=== PATIENT | female | born 1975 | race Caucasian/White ===

== ENCOUNTER 2018-05-10 01:03 | Outpatient (CLI) | payer BC, SELFPAY ==
--- NOTE | 2018-05-10 08:00 | DI.MAMMO_ITS ---
SYMPTOMS/DIAGNOSIS: BREAST CANCER SCREENING MAMMOGRAM: Mammograms were interpreted according to the usual protocol including computer analysis with CAD system, tomosynthesis and C view imaging. The breasts are of moderate density with fairly symmetrical distribution of fibroglandular tissue. No dominant mass or clumped microcalcification is identified in either breast. Current examination is compared with the previous examination of May 2014 and there has been no gross interval change in appearance in comparison with the previous study. CONCLUSION: No specific evidence of malignancy at this time. Routine screening examinations are suggested at yearly intervals due to the family history of breast carcinoma. Category 1, breast density category B. MQSA ASSESSMENT OF FINDINGS: Negative. Category 1. Patient will receive a letter notifying them of these results. BI-RADS category B. There are scattered areas of fibroglandular density.
[2018-05-10 08:16] LABS: Hemoglobin A1C 9.6 % (4.5-6.2)
[2018-05-10 08:49] LABS: ALT 73 U/L (12-78); AST 45 U/L (15-37); Albumin 3.6 g/dL (3.4-5.0); Alkaline Phosphatase 79 U/L (46-116); BUN 8 mg/dL (7-18); Bilirubin, Total 0.7 mg/dL (0.2-1.0); Calcium 8.7 mg/dL (8.5-10.1); Chloride 100 mmol/L (98-107); Cholesterol 217 mg/dL (50-200); Glucose 223 mg/dL (70-100); HDL Cholesterol 35 mg/dL (40-60); LDL CHOLESTEROL 162 mg/dL (<100); Potassium 4.1 mmol/L (3.5-5.1); Sodium 139 mmol/L (136-145); Total Protein 7.3 g/dL (6.4-8.2); Triglyceride 152 mg/dL (30-150)
== END 2018-05-10 01:23 ==
PROVIDERS: PCP Nurse Practitioner Family; Visit Provider Nurse Practitioner Family
DX: Z12.31 Encounter for screening mammogram for malignant neoplasm of breast (principal); E11.9 Type 2 diabetes mellitus without complications; E78.5 Hyperlipidemia, unspecified; Z79.4 Long term (current) use of insulin
CPT/HCPCS: 36415; 77063; 77067; 80053; 80061; 83721; 83036

== ENCOUNTER 2018-05-16 22:19 | Emergency (ER) | payer BC, SELFPAY ==
[2018-05-16 22:21] VITALS: BP 127/92; PULSE 83; RESP 16; TEMP 36.1; O2SAT 97
--- NOTE | 2018-05-16 22:30 | W.ED.GENAD ---
Discharge Plan Disposition Patient Disposition: HOME Condition: Improving Discharge Details Chief Complaint: Nausea/Vomit/Diar Clinical Impression: Gastroenteritis Primary Care Provider: Aria Wilson ED Provider: Crescencio Segura Home Meds and New Rx's Prescriptions: Continue buspirone 10 mg tablet 10 mg PO HS Qty: 90 RF: 4 blood sugar diagnostic [Blood Glucose Test] strip 1 ea Miscellaneous TID PRNQty: 400 RF: 4 amitriptyline 50 mg tablet 50 mg PO HS Qty: 90 RF: 4 omeprazole 20 mg capsule,delayed release(DR/EC) 20 mg PO DAILY Qty: 90 RF: 4 simvastatin 10 mg tablet 10 mg PO DAILY Qty: 90 RF: 4 trazodone 100 mg tablet 100 mg PO HS Qty: 90 RF: 4 pen needle, diabetic 31 gauge x 1/3 needle 1 ea Miscellaneous QID Qty: 400 RF: 4 metformin 500 mg tablet 500 mg PO BID Qty: 90 RF: 0 inhalational spacing device [Space Chamber Plus] 1 EACH spacer 1 ea Miscellaneous PRN Qty: 1 RF: 0 omega-3 fatty acids-fish oil 1 EACH capsule 1 ea PO DAILY RF: 0 insulin glargine [Lantus Solostar U-100 Insulin] 100 UNIT/1 ML insulin pen 78 units SQ HS Qty: 4 RF: 12 diclofenac sodium 100 GM gel 2 - 4 gm Topical TID PRNQty: 2 RF: 0 Discharge Instructions Instructions: Gastroenteritis (ED) Additional Instructions: Home to rest tonight. Small, frequent sips of fluids to maintain hydration. May use Zofran, as instructed, as needed every 4-6 hours for nausea. Your potassium level was slightly low and while it was supplemented, you would benefit from increased dietary potassium from food such as bananas or tree nuts Return the emergency department for any acute concerns Medical Decision Making 43-year-old female diabetic presents with hours of nausea, vomiting, diarrhea that was watery and without blood. Denies any suspicious food contacts or travel. She does not of chest pain. She states that she has recently been well. She arrives with a temp of 36 pulse 83, blood pressure 127/92. She does not have evidence of peritonitis. Consistent with gastroenteritis. IV access established, labs obtained, patient given fluid bolus and antiemetic. Labs reveal a white blood cell count of 12, chemistries notable for potassium 3.2 which was supplemented in the ED. Following fluids and anti-emetic, patient improved. Stable for outpatient management with as needed use of antiemetic. Discussed with her return precautions to the ER. HPI General Mode of arrival: ambulatory. Date/Time Provider Initiated Documentation: 05/16/18 22:24. Limitations to Documentation: no limitations. Information obtained by: patient. History of Present Illness 43 year old F presents to the emergency department with the chief complaint of Nausea, vomiting, diarrhea over hours time, described as moderate, Quality is described as aching, and is localized to the abdomen. Patient reports no radiation. Patient started experiencing this hour(s) and it has been intermittent. No relieving factors improve symptom(s), No exacerbating factors reported . Patient notes loss of appetite and malaise. Related Data Home Medications Medication Instructions Recorded Confirmed inhalational spacing device [Space #1 01/09/15 05/11/18 Chamber Plus] omega-3 fatty acids-fish oil 1 ea PO DAILY 01/06/16 05/16/18 insulin glargine [Lantus Solostar 78 units SQ HS #4 box 07/28/17 05/16/18 U-100 Insulin] diclofenac sodium 2 - 4 gm TOPICAL TID PRN #2 gm 02/06/18 05/16/18 amitriptyline 50 mg tablet 50 mg PO HS #90 tab-cap 05/01/18 05/16/18 blood sugar diagnostic strips #400 each 05/01/18 05/11/18 buspirone 10 mg tablet 10 mg PO HS #90 tab-cap 05/01/18 05/16/18 omeprazole 20 mg capsule,delayed 20 mg PO DAILY #90 tab-cap 05/01/18 05/16/18 release pen needle, diabetic 31 gauge x #400 ea 05/01/18 05/11/18 1/3 simvastatin 10 mg tablet 10 mg PO DAILY #90 tab-cap 05/01/18 05/16/18 trazodone 100 mg tablet 100 mg PO HS #90 tab 05/01/18 05/16/18 metformin 500 mg tablet 500 mg PO BID #90 tab 05/11/18 05/16/18 Previous Rx's Medication Instructions Recorded insulin glargine [Lantus Solostar 78 units SQ HS #4 box 07/28/17 U-100 Insulin] amitriptyline 50 mg tablet 50 mg PO HS #90 tab-cap 05/01/18 blood sugar diagnostic strips #400 each 05/01/18 buspirone 10 mg tablet 10 mg PO HS #90 tab-cap 05/01/18 omeprazole 20 mg capsule,delayed 20 mg PO DAILY #90 tab-cap 05/01/18 release pen needle, diabetic 31 gauge x #400 ea 05/01/18 1/ simvastatin 10 mg tablet 10 mg PO DAILY #90 tab-cap 05/01/18 trazodone 100 mg tablet 100 mg PO HS #90 tab 05/01/18 metformin 500 mg tablet 500 mg PO BID #90 tab 05/11/18 Allergies Allergy/AdvReac Type Severity Reaction Status Date / Time No Known Allergies Allergy Unverified 05/16/18 22:25 General Stated Complaint: Nausea/Vomit/Diar KAMRON: 3 Review of Systems Review of Systems 6 systems reviewed and otherwise negative PFSH Family History Mother Personal history of malignant neoplasm Hyperlipidemia Father Essential hypertension Hyperlipidemia Brother Asthma Grandfather No problems noted. Grandfather Personal history of malignant neoplasm Grandmother Personal history of malignant neoplasm Grandmother No problems noted. 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 Pleasant, well groomed, interactive. HEAD: Normocephalic, atraumatic ENT: Mucous membranes dry, oropharynx unremarkable, External ear exam unremarkable EYES: PERRL, EOMI NECK: Full ROM, no WILLIS, no menigismus CHEST/RESP: Nontender, clear to auscultation bilateral, no wheeze/rhonchi/rales CARDIOVASCULAR: RRR, no murmur, rub bhavik. 2+ Rad pulse bilateral ABDOMEN: Soft, nontender, no mass. +Bowel sounds EXT: Full ROM, no edema, no rash Neuro: Grossly normal neurologic exam, conversant, interactive. Psych: Speech fluent, thoughts congruent, affect normal Course Vital Signs Temperature 36.1 C L 05/16/18 22:21 Pulse 83 05/16/18 22:21 Respiratory Rate 16 05/16/18 22:21 Blood Pressure 127/92 H 05/16/18 22:21 Pulse Oximetry 97 05/16/18 22:21 Temperature 36.1 C L 05/16/18 22:21 Temperature Source Skin 05/16/18 22:21 Pulse 83 05/16/18 22:21 Respiratory Rate 16 05/16/18 22:21 Respiratory Effort Non-Labored 05/16/18 22:24 Blood Pressure 127/92 H 05/16/18 22:21 Blood Pressure Position Sitting 05/16/18 22:21 Pulse Oximetry 97 05/16/18 22:21 Oxygen Delivery Method Room Air 05/16/18 22:21 Oxygen Flow Rate 0 05/16/18 22:21
[2018-05-16] MEDS: Normal Saline 1,000 ML 2000 ML IV (22:40)
[2018-05-16] MEDS: Ondansetron 4 MG/2 ML VIAL IVP (22:41)
[2018-05-16 22:46] LABS: Basophils % 0.2; Mean Corp. HGB Concentration 36.5 g/dL (32.0-36.0); Neutrophils % 73.3
[2018-05-16 22:55] LABS: Abs Immature Grans 0.04 k/cumm (0.0-0.09); Absolute Basophil Count 0.03 k/cumm (0.0-0.2); Absolute Eosinophil Count 0.13 k/cumm (0.0-0.7); Absolute Lymphocyte Count 2.29 k/cumm (1.2-3.4); Absolute Monocyte Count 0.91 k/cumm (0.11-0.7); Absolute Neutrophil Count 9.31 k/cumm (1.2-6.7); HCT 44.6 % (36.0-46.0); HGB 16.3 g/dL (12.0-15.5); Immature Grans % 0.3; Mean Corpuscular Hemoglobin 29.4 pg (27.0-33.0); Mean Corpuscular Volume 80.5 fL (80-95); Mean Platelet Volume 11.8 fL (8.0-11.0); Monocytes % 7.2; Platelet Count 156 x1000/uL (130-400); RBC 5.54 m/cumm (4.00-5.20); RBC Distribution Width 12.8 % (11.7-14.6)
[2018-05-16 22:58] LABS: ALT 75 U/L (12-78); AST 42 U/L (15-37); Albumin 4.2 g/dL (3.4-5.0); Alkaline Phosphatase 93 U/L (46-116); Anion Gap 13.2 mmol/L (3-11); BUN 10 mg/dL (7-18); Bilirubin, Total 0.7 mg/dL (0.2-1.0); CO2 23.8 mmol/L (21.0-32.0); CREATININE 0.86 mg/dL (0.55-1.02); Calcium 9.5 mg/dL (8.5-10.1); Chloride 100 mmol/L (98-107); Glucose 226 mg/dL (70-100); Lipase 93 U/L (73-393); Potassium 3.2 mmol/L (3.5-5.1); Sodium 137 mmol/L (136-145); Total Protein 8.5 g/dL (6.4-8.2)
[2018-05-16] MEDS: POTASSIUM CHLORIDE 20 MEQ/100 ML BAG 50 MEQ IVPB (23:06)
[2018-05-16] MEDS: Normal Saline 250 ML IV (23:15)
[2018-05-17] MEDS: Ondansetron O.D.T. 4 MG TABEF (01:07)
[2018-05-17 01:13] VITALS: BP 130/84; PULSE 103; RESP 16; TEMP 36.6; O2SAT 96
== END 2018-05-17 01:13 | disposition home or self-care (01) ==
PROVIDERS: Emergency Provider Emergency Medicine; PCP Nurse Practitioner Family
DX: K52.9 Noninfective gastroenteritis and colitis, unspecified (principal); E87.6 Hypokalemia; E11.9 Type 2 diabetes mellitus without complications; Z79.4 Long term (current) use of insulin
CPT/HCPCS: 36415; 80053; 83690; 96361; 96365; 96366; 96375; 99284; 85025; J2405; J3480

== ENCOUNTER 2018-08-14 10:10 | Outpatient (REF) | payer BC, SELFPAY ==
--- NOTE | 2018-08-14 09:45 | PAPFT_PTH ---
PATIENT: Jun Sutton LOC: [facility] U#:[id number] AGE/SX: 43/F ROOM: RE08/14/[address]: SHERIF Brown : 1975 BED: DIS: 08/14/2018 SPEC #: [id number] RECD: 08/14/18 12:51 STATUS: DANYA MONTEJO #: [id number] LANE: 08/14/18 09:[address]: Aria Wilson DEPT: [facility] Cytology RECD BY: No Olivares Tissues: 1 - CX/ENDOCX FOR PAP SMEARS Procedures: PAP THIN PREP/UVM Screening HPV DNA PROBE Comments: [id number]
== END 2018-08-14 10:30 ==
LOC: LBN 10:10
PROVIDERS: PCP Nurse Practitioner Family; Visit Provider Nurse Practitioner Family
DX: Z12.4 Encounter for screening for malignant neoplasm of cervix (principal); Z11.51 Encounter for screening for human papillomavirus (HPV)
CPT/HCPCS: 88142; 87624

== ENCOUNTER 2018-09-28 07:51 | Outpatient (CLI) | payer BC, SELFPAY ==
[2018-09-28 08:36] LABS: Hemoglobin A1C 9.8 % (4.5-6.2)
[2018-09-28 09:43] LABS: ALT 62 U/L (12-78); AST 31 U/L (15-37); Alkaline Phosphatase 76 U/L (46-116); Anion Gap 8.7 mmol/L (3-11); BUN 10 mg/dL (7-18); Bilirubin, Total 0.7 mg/dL (0.2-1.0); CO2 30.3 mmol/L (21.0-32.0); CREATININE 0.81 mg/dL (0.55-1.02); Calcium 9.4 mg/dL (8.5-10.1); Chloride 102 mmol/L (98-107); Cholesterol 142 mg/dL (50-200); Glucose 147 mg/dL (70-100); HDL Cholesterol 31 mg/dL (40-60); LDL CHOLESTEROL 92 mg/dL (<100); Potassium 4.2 mmol/L (3.5-5.1); Sodium 141 mmol/L (136-145); Total Protein 7.4 g/dL (6.4-8.2); Triglyceride 97 mg/dL (30-150)
== END 2018-09-28 08:11 ==
PROVIDERS: PCP Nurse Practitioner Family; Visit Provider Nurse Practitioner Family
DX: E78.5 Hyperlipidemia, unspecified (principal); E11.9 Type 2 diabetes mellitus without complications
CPT/HCPCS: 36415; 80053; 80061; 83721; 83036

== ENCOUNTER 2018-11-19 08:08 | Emergency (ER) | payer BC, SELFPAY ==
--- NOTE | 2018-11-19 08:09 | W.ED.GENAD ---
Discharge Plan Disposition Patient Disposition: HOME Condition: Good Discharge Details Chief Complaint: RespSymp Clinical Impression: Sinusitis, Bronchitis Primary Care Provider: Aria Wilson ED Provider: Thee Funk Home Meds and New Rx's Prescriptions: New loratadine 10 mg capsule 10 mg PO DAILY Qty: 30 RF: 0 fluticasone propionate [Flonase Allergy Relief] 50 mcg/actuation spray,suspension 2 spray CALEB DAILY Qty: 9.9 RF: 0 doxycycline hyclate 100 mg tablet 100 mg PO BID Qty: 20 RF: 0 albuterol sulfate 90 mcg/actuation HFA aerosol inhaler 2 puff IH Q6H PRN (Reason: bronchospasm) Qty: 6.7 RF: 0 No Action Blood Glucose Test strip 1 ea Miscellaneous TID PRNQty: 400 RF: 4 omeprazole 20 mg capsule,delayed release(DR/EC) 20 mg PO DAILY Qty: 90 RF: 4 simvastatin 10 mg tablet 10 mg PO DAILY Qty: 90 RF: 4 trazodone 100 mg tablet 100 mg PO HS Qty: 90 RF: 4 pen needle, diabetic 31 gauge x 1/3 needle 1 ea Miscellaneous QID Qty: 400 RF: 4 buspirone 10 mg tablet 10 mg PO BID Qty: 180 RF: 4 metformin 500 mg tablet 1,000 mg PO BID RF: 0 omega-3 fatty acids-fish oil 1 EACH capsule 1 ea PO DAILY RF: 0 sertraline 50 mg tablet 75 mg PO DAILY Qty: 135 RF: 4 Lantus Solostar U-100 Insulin 100 unit/mL (3 mL) insulin pen 78 unit subcut HS Qty: 60 RF: 4 Discharge Instructions Instructions: Sinusitis (ED), Acute Bronchitis (ED) Additional Instructions: At this time you clinically have sinusitis and bronchitis. Please take the medication as directed. If you notice any worsening of your symptoms, or any new symptoms such as vomiting, diarrhea, fever, chills, shortness of breath, chest pain, numbness, weakness, or fainting , please return immediately to the emergency department for reevaluation. Please follow up with your primary care provider as soon as possible for reassessment and reevaluation. As always, it was a pleasure participating in your medical care today. Referrals: Adjovu,Aria, FILING AND POLISHING SUPERVISOR [Primary Care Provider] - Discharge Data Discharge Date/Time-TO BE ENTERED AT DEPARTURE: 11/19/18 08:53 Medical Decision Making This is a pleasant 43-year-old female who presents today for evaluation of cough, sore throat, productive green sputum. Signs and symptoms are concerning for bronchitis, sinusitis. Patient's vital signs are reassuring, no chest pain or shortness of breath. At this time I do feel that antibiotic treatment is appropriate in the current clinical setting on my evaluation. We will treat with doxycycline, and intranasal steroids to help reduce sinus congestion, and bronchitis. I have extensively reviewed the treatment plan and discharge instructions with the patient and their family. I have addressed all patient concerns at this time. The patient and family was made aware of what symptoms to monitor for that would warrant a return to the emergency department. Discussed the plan with the patient and family, they demonstrate verbal understanding and agreement with our assessment and plan at this time. HPI General Date/Time Provider Initiated Documentation: 11/19/18 08:08. HPI Narrative: This is a 43-year-old female who presents today for evaluation of sore throat last night as well as mild cough with productive green sputum. She denies any fever or chills. She denies any headache, chest pain, shortness of breath, numbness, tingling or weakness. She does admit to other similar symptoms and sick contacts. She has no other complaints at this time. No other modifying factors. Related Data Home Medications Medication Instructions Recorded Confirmed omega-3 fatty acids-fish oil 1 ea PO DAILY 01/06/16 11/19/18 blood sugar diagnostic strips #400 each 05/01/18 11/19/18 omeprazole 20 mg capsule,delayed 20 mg PO DAILY #90 tab-cap 05/01/18 11/19/18 release pen needle, diabetic 31 gauge x #400 ea 05/01/18 11/19/18/ simvastatin 10 mg tablet 10 mg PO DAILY #90 tab-cap 05/01/18 11/19/18 trazodone 100 mg tablet 100 mg PO HS #90 tab 05/01/18 11/19/18 buspirone 10 mg tablet 10 mg PO BID #180 tab 08/14/18 11/19/18 sertraline 50 mg tablet 75 mg PO DAILY #135 tab 09/27/18 11/19/18 metformin 500 mg tablet 1,000 mg PO BID tab 09/29/18 11/19/18 insulin glargine (U-100) 100 78 unit SUBCUT HS #60 ml 10/03/18 11/19/18 unit/mL (3 mL) subcutaneous pen albuterol sulfate 2 puff IH Q6H PRN #6.7 gm 11/19/18 doxycycline hyclate 100 mg PO BID #20 tab 11/19/18 fluticasone propionate [Flonase 2 spray CALEB DAILY #9.9 gm 11/19/18 Allergy Relief] loratadine 10 mg PO DAILY #30 cap 11/19/18 Previous Rx's Medication Instructions Recorded blood sugar diagnostic strips #400 each 05/01/18 omeprazole 20 mg capsule,delayed 20 mg PO DAILY #90 tab-cap 05/01/18 release pen needle, diabetic 31 gauge x #400 ea 05/01/1806/29 simvastatin 10 mg tablet 10 mg PO DAILY #90 tab-cap 05/01/18 trazodone 100 mg tablet 100 mg PO HS #90 tab 05/01/18 buspirone 10 mg tablet 10 mg PO BID #180 tab 08/14/18 sertraline 50 mg tablet 75 mg PO DAILY #135 tab 09/27/18 insulin glargine (U-100) 100 78 unit SUBCUT HS #60 ml 10/03/18 unit/mL (3 mL) subcutaneous pen albuterol sulfate 2 puff IH Q6H PRN #6.7 gm 11/19/18 doxycycline hyclate 100 mg PO BID #20 tab 11/19/18 fluticasone propionate [Flonase 2 spray CALEB DAILY #9.9 gm 11/19/18 Allergy Relief] loratadine 10 mg PO DAILY #30 cap 11/19/18 Allergies Allergy/AdvReac Type Severity Reaction Status Date / Time No Known Allergies Allergy Unverified 11/19/18 08:18 General KAMRON: 3 Review of Systems Review of Systems All systems reviewed & are unremarkable except as noted in HPI and below PFSH Social History Smoking/Tobacco Use Status: Never Alcohol Intake: current Alcohol Intake frequency: holidays/special occasions only Drug use: Never Substance use type: does not use Caregiver/Support person: No Household members: spouse, children and other Details: 3 Housing: house 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 Pets and animals: Yes Pets and animals: cat(s) and dog(s) Sexually active: Yes Do you think of yourself as: straight/heterosexual Current gender identity: female What is your relationship status?: How often do you talk on the phone with friends or family?: twice per week How often do you get together with friends or relatives?: once per week How often do you attend anabaptism or pentecostalism services?: decline to answer Do you belong to any clubs or organized social groups?: no Panel score (0-1 are the most socially isolated patients): 2 What type of physical activity do you participate in: none Shae/Caodaism: None Special shae needs: No Do you feel safe at home: Yes Do you feel safe in your relationship?: Yes History History 3 Para Hx # Term Pregnancies Multiple births Hx # Pregnancies Ectopic pregnancies AB induced Hx Number of Living Children 1 AB spontaneous 2 Exam Narrative Exam Narrative: 1.Const: Well-nourished, Well-developed, appearing stated age 2.Eyes: PERRL, no conjunctival injection, and symmetrical lids. 3.ENT: Atraumatic external nose and ears. Moist MM. Neck: Symmetric, trachea midline, No thyromegaly. Tenderness to percussion of the frontal sinuses. 4.CVS: +S1/S2, No murmurs or gallops. Peripheral pulses 2+ and equal in all extremities. Brisk capillary refill in all extremities. 5.RESP: Unlabored respiratory effort. Minimal upper respiratory rhonchi. 6.GI: Soft, Nontender/Nondistended, No hepatosplenomegaly. No guarding or rebound. 7.MSK: Normocephalic/Atraumatic, Extremities w/o deformity or ttp No cyanosis or clubbing, Normal movement of all extremities 8.Skin: Warm, Dry. No rashes or lesions. 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 Sensation grossly intact, no focal neurologic deficits. 10.Psych: (AAO) x3. Appropriate mood and affect
--- NOTE | 2018-11-19 08:14 | NUR.NOTE ---
pt states that she has had cold like symptoms and predictive cough for the past month on and off
[2018-11-19 08:15] VITALS: BP 143/90; PULSE 90; RESP 18; TEMP 36.6; O2SAT 95
--- NOTE | 2018-11-19 08:20 | ED.GENADUL_ITS ---
Discharge Plan Disposition Patient Disposition: HOME Condition: Good Discharge Details Chief Complaint: RespSymp Clinical Impression: Sinusitis, Bronchitis Primary Care Provider: Aria Wilson ED Provider: Thee Funk Home Meds and New Rx's Prescriptions: New loratadine 10 mg capsule 10 mg PO DAILY Qty: 30 RF: 0 fluticasone propionate [Flonase Allergy Relief] 50 mcg/actuation spray,suspension 2 spray CALEB DAILY Qty: 9.9 RF: 0 doxycycline hyclate 100 mg tablet 100 mg PO BID Qty: 20 RF: 0 albuterol sulfate 90 mcg/actuation HFA aerosol inhaler 2 puff IH Q6H PRN (Reason: bronchospasm) Qty: 6.7 RF: 0 No Action Blood Glucose Test strip 1 ea Miscellaneous TID PRNQty: 400 RF: 4 omeprazole 20 mg capsule,delayed release(DR/EC) 20 mg PO DAILY Qty: 90 RF: 4 simvastatin 10 mg tablet 10 mg PO DAILY Qty: 90 RF: 4 trazodone 100 mg tablet 100 mg PO HS Qty: 90 RF: 4 pen needle, diabetic 31 gauge x 1/3 needle 1 ea Miscellaneous QID Qty: 400 RF: 4 buspirone 10 mg tablet 10 mg PO BID Qty: 180 RF: 4 metformin 500 mg tablet 1,000 mg PO BID RF: 0 omega-3 fatty acids-fish oil 1 EACH capsule 1 ea PO DAILY RF: 0 sertraline 50 mg tablet 75 mg PO DAILY Qty: 135 RF: 4 Lantus Solostar U-100 Insulin 100 unit/mL (3 mL) insulin pen 78 unit subcut HS Qty: 60 RF: 4 Discharge Instructions Instructions: Sinusitis (ED), Acute Bronchitis (ED) Additional Instructions: At this time you clinically have sinusitis and bronchitis. Please take the medication as directed. If you notice any worsening of your symptoms, or any new symptoms such as vomiting, diarrhea, fever, chills, shortness of breath, chest pain, numbness, weakness, or fainting , please return immediately to the emergency department for reevaluation. Please follow up with your primary care provider as soon as possible for reassessment and reevaluation. As always, it was a pleasure participating in your medical care today. Referrals: Adjovu,Aria, QUANTITATIVE ANALYST DEVELOPER [Primary Care Provider] - Discharge Data Discharge Date/Time-TO BE ENTERED AT DEPARTURE: 11/19/18 08:53 Medical Decision Making This is a pleasant 43-year-old female who presents today for evaluation of cough, sore throat, productive green sputum. Signs and symptoms are concerning for bronchitis, sinusitis. Patient's vital signs are reassuring, no chest pain or shortness of breath. At this time I do feel that antibiotic treatment is appropriate in the current clinical setting on my evaluation. We will treat with doxycycline, and intranasal steroids to help reduce sinus congestion, and bronchitis. I have extensively reviewed the treatment plan and discharge instructions with the patient and their family. I have addressed all patient concerns at this time. The patient and family was made aware of what symptoms to monitor for that would warrant a return to the emergency department. Discussed the plan with the patient and family, they demonstrate verbal understanding and agreement with our assessment and plan at this time. HPI General Date/Time Provider Initiated Documentation: 11/19/18 08:08 . HPI Narrative: This is a 43-year-old female who presents today for evaluation of sore throat last night as well as mild cough with productive green sputum. She denies any fever or chills. She denies any headache, chest pain, shortness of breath, numbness, tingling or weakness. She does admit to other similar symptoms and sick contacts. She has no other complaints at this time. No other modifying factors. Related Data Home Medications Medication Instructions Recorded Confirmed omega-3 fatty acids-fish oil 1 ea PO DAILY 01/06/16 11/19/18 blood sugar diagnostic strips #400 each 05/01/18 11/19/18 omeprazole 20 mg capsule,delayed 20 mg PO DAILY #90 tab-cap 05/01/18 11/19/18 release pen needle, diabetic 31 gauge x #400 ea 05/01/18 11/19/18/ simvastatin 10 mg tablet 10 mg PO DAILY #90 tab-cap 05/01/18 11/19/18 trazodone 100 mg tablet 100 mg PO HS #90 tab 05/01/18 11/19/18 buspirone 10 mg tablet 10 mg PO BID #180 tab 08/14/18 11/19/18 sertraline 50 mg tablet 75 mg PO DAILY #135 tab 09/27/18 11/19/18 metformin 500 mg tablet 1,000 mg PO BID tab 09/29/18 11/19/18 insulin glargine (U-100) 100 78 unit SUBCUT HS #60 ml 10/03/18 11/19/18 unit/mL (3 mL) subcutaneous pen albuterol sulfate 2 puff IH Q6H PRN #6.7 gm 11/19/18 doxycycline hyclate 100 mg PO BID #20 tab 11/19/18 fluticasone propionate [Flonase 2 spray CALEB DAILY #9.9 gm 11/19/18 Allergy Relief] loratadine 10 mg PO DAILY #30 cap 11/19/18 Previous Rx's Medication Instructions Recorded blood sugar diagnostic strips #400 each 05/01/18 omeprazole 20 mg capsule,delayed 20 mg PO DAILY #90 tab-cap 05/01/18 release pen needle, diabetic 31 gauge x #400 ea 05/01/1806/29 simvastatin 10 mg tablet 10 mg PO DAILY #90 tab-cap 05/01/18 trazodone 100 mg tablet 100 mg PO HS #90 tab 05/01/18 buspirone 10 mg tablet 10 mg PO BID #180 tab 08/14/18 sertraline 50 mg tablet 75 mg PO DAILY #135 tab 09/27/18 insulin glargine (U-100) 100 78 unit SUBCUT HS #60 ml 10/03/18 unit/mL (3 mL) subcutaneous pen albuterol sulfate 2 puff IH Q6H PRN #6.7 gm 11/19/18 doxycycline hyclate 100 mg PO BID #20 tab 11/19/18 fluticasone propionate [Flonase 2 spray CALEB DAILY #9.9 gm 11/19/18 Allergy Relief] loratadine 10 mg PO DAILY #30 cap 11/19/18 Allergies Allergy/AdvReac Type Severity Reaction Status Date / Time No Known Allergies Allergy Unverified 11/19/18 08:18 General KAMRON: 3 Review of Systems Review of Systems All systems reviewed & are unremarkable except as noted in HPI and below PFSH Social History Smoking/Tobacco Use Status: Never Alcohol Intake: current Alcohol Intake frequency: holidays/special occasions only Drug use: Never Substance use type: does not use Caregiver/Support person: No Household members: spouse, children and other Details: 3 Housing: house 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 Pets and animals: Yes Pets and animals: cat(s) and dog(s) Sexually active: Yes Do you think of yourself as: straight/heterosexual Current gender identity: female What is your relationship status?: How often do you talk on the phone with friends or family?: twice per week How often do you get together with friends or relatives?: once per week How often do you attend restorationist or adventism services?: decline to answer Do you belong to any clubs or organized social groups?: no Panel score (0-1 are the most socially isolated patients): 2 What type of physical activity do you participate in: none Shae/Worship: None Special shae needs: No Do you feel safe at home: Yes Do you feel safe in your relationship?: Yes History History 3 Para Hx # Term Pregnancies Multiple births Hx # Pregnancies Ectopic pregnancies AB induced Hx Number of Living Children 1 AB spontaneous 2 Exam Narrative Exam Narrative: 1.Const: Well-nourished, Well-developed, appearing stated age 2.Eyes: PERRL, no conjunctival injection, and symmetrical lids. 3.ENT: Atraumatic external nose and ears. Moist MM. Neck: Symmetric, trachea midline, No thyromegaly. Tenderness to percussion of the frontal sinuses. 4.CVS: +S1/S2, No murmurs or gallops. Peripheral pulses 2+ and equal in all extremities. Brisk capillary refill in all extremities. 5.RESP: Unlabored respiratory effort. Minimal upper respiratory rhonchi. 6.GI: Soft, Nontender/Nondistended, No hepatosplenomegaly. No guarding or rebound. 7.MSK: Normocephalic/Atraumatic, Extremities w/o deformity or ttp No cyanosis or clubbing, Normal movement of all extremities 8.Skin: Warm, Dry. No rashes or lesions. 9.Neuro: division traffic superintendent II-XII grossly intact. Sensation grossly intact, no focal neurologic deficits. 10.Psych: (AAO) x3. Appropriate mood and affect
[2018-11-19 08:52] VITALS: BP 143/90; PULSE 90; RESP 18; TEMP 36.6; O2SAT 95
== END 2018-11-19 08:53 | disposition home or self-care (01) ==
PROVIDERS: Emergency Provider Student in an Organized Health Care Education/Training Program; PCP Nurse Practitioner Family
DX: J20.9 Acute bronchitis, unspecified (principal); J01.90 Acute sinusitis, unspecified; J02.9 Acute pharyngitis, unspecified
CPT/HCPCS: 99283

== ENCOUNTER 2019-01-14 18:30 | Emergency (ER) | payer BC, SELFPAY ==
[2019-01-14 18:33] VITALS: BP 110/69; PULSE 70; RESP 16; TEMP 36.2; O2SAT 95
--- NOTE | 2019-01-14 19:27 | ED.GENADUL_ITS ---
Discharge Plan Disposition Patient Disposition: HOME Condition: Good Discharge Details Chief Complaint: Laceration Clinical Impression: Laceration of lower extremity Primary Care Provider: Aria Wilson ED Provider: Shadia Mascorro Home Meds and New Rx's Prescriptions: New cephalexin [Keflex] 500 mg capsule 500 mg PO QID Qty: 20 RF: 0 Continued (DME) Blood Glucose Test strip 1 ea Miscellaneous TID Qty: 400 RF: 4 omeprazole 20 mg capsule,delayed release(DR/EC) 20 mg PO DAILY Qty: 90 RF: 4 simvastatin 10 mg tablet 10 mg PO DAILY Qty: 90 RF: 4 trazodone 100 mg tablet 100 mg PO HS Qty: 90 RF: 4 (DME) pen needle, diabetic 31 gauge x 1/3 needle 1 ea Miscellaneous QID Qty: 400 RF: 4 buspirone 10 mg tablet 10 mg PO BID Qty: 180 RF: 4 metformin 500 mg tablet 1,000 mg PO BID RF: 0 omega-3 fatty acids-fish oil 1 EACH capsule 1 ea PO DAILY RF: 0 sertraline 50 mg tablet 75 mg PO DAILY Qty: 135 RF: 4 Lantus Solostar U-100 Insulin 100 unit/mL (3 mL) insulin pen 78 unit subcut HS Qty: 60 RF: 4 loratadine 10 mg capsule 10 mg PO DAILY Qty: 30 RF: 0 fluticasone propionate [Flonase Allergy Relief] 50 mcg/actuation spray,suspen melissa 2 spray CALEB DAILY Qty: 9.9 RF: 0 albuterol sulfate 90 mcg/actuation HFA aerosol inhaler 2 puff IH Q6H PRN (Reason: bronchospasm) Qty: 6.7 RF: 0 Discharge Instructions Instructions: Cephalexin (By mouth), Laceration (ED) Additional Instructions: Encourage hydration. Please keep wound clean, dry, covered. Tylenol and/or ibuprofen as needed for discomfort. Please monitor wound for signs of infection including redness, warmth, drainage, increased pain, fever/chills. If these or other new/worsening symptoms arise please seek care urgently once again. Otherwise complete return in 2 weeks for suture removal. Please take Keflex as prescribed to help prevent infection. May wash with running water and soap but please do not soak or submerge as this will increase risk of infection. Referrals: Aria Wilson NP [Primary Care Provider] - Discharge Data Discharge Date/Time-TO BE ENTERED AT DEPARTURE: 01/14/19 20:36 Medical Decision Making Patient is a pleasant 23-year-old female presenting today with chief complaint of left posterior ankle laceration. She reports a prior to arrival she was w alking out of her house when she got caught by the edge of the screen door in the back of the ankle suffered a laceration into the subcutaneous tissue approximately 4 cm in length. Wound is curvilinear. Leading is controlled. Patient is a type II diabetic. Last tetanus was in 2011. Will update this today. Wound is just medial to the Achilles tendon, Achilles tendon is intact but visible on exam. Plan to anesthetize the wound and closed with sutures. Patient I discussed risk/benefits as well as expected procedural course. She voiced understanding and wished to proceed Please see procedure note. Patient tolerated this well. No foreign body or debris was noted. Wound was explored to depth in a bloodless field. Copious irrigation was used. Patient tolerated procedure well. We discussed wound care in depth. Wound was dressed. The patient is diabetic, this was an old dirty do or, and the location is at high risk for infection, feel prudent to place patient prophylactically on Keflex. Advised that she return in 2 weeks for suture removal. She is given strict return precautions, in particular signs of infection. All of her questions and concerns were addressed and she is in agreement this plan peer HPI General Mode of arrival: ambulatory . Date/Time Provider Initiated Documentation: 01/14/19 19:27 . Limitations to Documentation: no limitations . Information obtained by: patient and RN notes reviewed . History of Present Illness 43 year old F presents to the emergency department with the chief complaint of laceration left ankle, described as mild, with intensity rated at 3. Quality is described as aching, and is localized to the left and lower extremity. Patient reports no radiation. Patient started experiencing this minute(s) and it has been constant. No relieving factors improve symptom(s), No exacerbating factors reported . Patient notes no other symptoms.. Patient did receive the following treatments prior to arrival, none Related Data Home Medications Medication Instructions Recorded Confirmed omega-3 fatty acids-fish oil 1 ea PO DAILY 01/06/16 01/14/19 blood sugar diagnostic #400 each 05/01/18 11/19/18 omeprazole 20 mg capsule,delayed 20 mg PO DAILY #90 tab-cap 05/01/18 01/14/19 release pen needle, diabetic 31 gauge x #400 ea 05/01/18 11/19/1806/29 simvastatin 10 mg tablet 10 mg PO DAILY #90 tab-cap 05/01/18 01/14/19 trazodone 100 mg tablet 100 mg PO HS #90 tab 05/01/18 01/14/19 buspirone 10 mg tablet 10 mg PO BID #180 tab 08/14/18 01/14/19 sertraline 50 mg tablet 75 mg PO DAILY #135 tab 09/27/18 01/14/19 metformin 500 mg tablet 1,000 mg PO BID tab 09/29/18 01/14/19 insulin glargine 100 unit/mL (3 78 unit SUBCUT HS #60 ml 10/03/18 01/14/19 mL) subcutaneous pen albuterol sulfate 2 puff IH Q6H PRN #6.7 gm 11/19/18 01/14/19 fluticasone propionate [Flonase 2 spray CALEB DAILY #9.9 gm 11/19/18 01/14/19 Allergy Relief] loratadine 10 mg PO DAILY #30 cap 11/19/18 01/14/19 cephalexin [Keflex] 500 mg PO QID #20 cap 01/14/19 Previous Rx's Medication Instructions Recorded blood sugar diagnostic #400 each 05/01/18 omeprazole 20 mg capsule,delayed 20 mg PO DAILY #90 tab-cap 05/01/18 release pen needle, diabetic 31 gauge x #400 ea 05/01/1806/29 simvastatin 10 mg tablet 10 mg PO DAILY #90 tab-cap 05/01/18 trazodone 100 mg tablet 100 mg PO HS #90 tab 05/01/18 buspirone 10 mg tablet 10 mg PO BID #180 tab 08/14/18 sertraline 50 mg tablet 75 mg PO DAILY #135 tab 09/27/18 insulin glargine 100 unit/mL (3 78 unit SUBCUT HS #60 ml 10/03/18 mL) subcutaneous pen albuterol sulfate 2 puff IH Q6H PRN #6.7 gm 11/19/18 fluticasone propionate [Flonase 2 spray CALEB DAILY #9.9 gm 11/19/18 Allergy Relief] loratadine 10 mg PO DAILY #30 cap 11/19/18 cephalexin [Keflex] 500 mg PO QID #20 cap 01/14/19 Allergies Allergy/AdvReac Type Severity Reaction Status Date / Time No Known Allergies Allergy Unverified 01/14/19 18:37 General Stated Complaint: Laceration KAMRON: 4 Review of Systems Constitutional Reports as per HPI, Denies chills and Denies fever(s) Musculoskeletal Reports as per HPI Integumentary/Breasts Reports as per HPI Neurologic Reports as per HPI, Denies sensory deficit and Denies paresthesias [facility] Medical History Allergic rhinitis (Chronic) Depressive disorder (Chronic) Diabetes (Chronic) Gastroesophageal reflux disease (Chronic) Generalized anxiety disorder (Chronic) Hyperlipidemia (Chronic) Nonalcoholic steatohepatitis (MARQUEZ) (Chronic 06/10/14) PCOS (polycystic ovarian syndrome) (Chronic) Type 2 diabetes mellitus (Chronic) Surgical History Colonoscopy - MAC (Inactive 03/09/07) History of ankle surgery (Inactive 04/18/09) History of bilateral carpal tunnel release (Inactive 11/01/06) History of repair of anterior cruciate ligament of right knee (Inactive) S/P arthroscopic knee surgery (Inactive) Status post incision and drainage (Inactive 01/16/14) Social History Smoking/Tobacco Use Status: Never Alcohol Intake: current Alcohol Intake frequency: holidays/special occasions only Drug use: Never Substance use type: does not use Caregiver/Support person: No Household members: spouse, children and other Details: 3 Housing: house 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 Pets and animals: Yes Pets and animals: cat(s) and dog(s) Sexually active: Yes Do you think of yourself as: straight/heterosexual Current gender identity: female What is your relationship status?: How often do you talk on the phone with friends or family?: twice per week How often do you get together with friends or relatives?: once per week How often do you attend methodist or lutheran services?: decline to answer Do you belong to any clubs or organized social groups?: no Panel score (0-1 are the most socially isolated patients): 2 What type of physical activity do you participate in: none Shae/Pentecostal: None Special shae needs: No Do you feel safe at home: Yes Do you feel safe in your relationship?: Yes History History 3 Para Hx # Term Pregnancies Multiple births Hx # Pregnancies Ectopic pregnancies AB induced Hx Number of Living Children 1 AB spontaneous 2 Exam Const General: cooperative, healthy appearing, comfortable, no acute distress and well developed Nutritional Appearance: average body habitus and well nourished Orientation: alert and awake Resp Effort & Inspection: normal respiratory effort, able to speak in complete sentences and no respiratory distress Cardio Rate: regular rate Rhythm: regular rhythm Skin Trauma: laceration (3.5cm curvilinear laceration to left medial ankle just off of achilles) Neuro General: alert and awake Cognition: normal cognition Speech: speech normal Gait: normal gait Sensory Exam: no sensory deficits noted Extrem Left lower extremity: full ROM, normal capillary refill, no joint enlargement, lower leg Details: normal to inspection and no edema; no erythema, no tenderness and no localized swelling, ankle Details: tenderness (over laceration), no edema and normal ROM; no swelling and achilles tendon exam normal (visible through wound but intact) and foot Details: normal capillary refill and vascular exam Details: dorsalis pedis pulse present, posterior tibial pulse present and normal capillary refill; abnormal to inspection (laceration as above) and no edema Ankle/foot/toe images: 1. laceration Psych Appearance: grossly normal and well kempt Mental Status: mental status grossly normal Speech and Movement: speech and movement normal Course Vital Signs Temperature 36.2 C L 01/14/19 18:33 Pulse 70 01/14/19 18:33 Respiratory Rate 16 01/14/19 18:33 Blood Pressure 110/69 01/14/19 18:33 Pulse Oximetry 95 01/14/19 18:33 Temperature 36.2 C L 01/14/19 18:33 Temperature Source Skin 01/14/19 18:33 Pulse 70 01/14/19 18:33 Respiratory Rate 16 01/14/19 18:33 Respiratory Effort Non-Labored 01/14/19 18:36 Blood Pressure 110/69 01/14/19 18:33 Pulse Oximetry 95 01/14/19 18:33 Pain Level 3 01/14/19 18:33 Procedures Laceration Laceration 1: Site: lower extremity Side (If applicable): left Size (cm): 3.5 Description: irregular Depth: simple, single layer Local Anesthetic: Lidocaine 1% Amount of anesthesia used (mL): 10 Pre-repair: wound explored, irrigated extensively, deep structures intact and extensive debridement Skin layer closed with: nylon Size (cm): 5-0 Number of sutures: 5 Technique: simple, interrupted and horizontal mattress
[2019-01-14] MEDS: Lidocaine 1% Multi-Dose 50 ML VIAL (20:21)
[2019-01-14] MEDS: Cephalexin 500 MG CAP PO ×2 (20:37)
== END 2019-01-14 20:36 | disposition home or self-care (01) ==
PROVIDERS: Emergency Provider Physician Assistant; PCP Nurse Practitioner Family
DX: S91.012A Laceration without foreign body, left ankle, initial encounter (principal); W45.8XXA Other foreign body or object entering through skin, initial encounter; E11.9 Type 2 diabetes mellitus without complications; Z79.4 Long term (current) use of insulin
CPT/HCPCS: 12002; 90471; 99283

== ENCOUNTER 2019-01-25 08:12 | Outpatient (CLI) | payer BC, SELFPAY ==
[2019-01-25 09:40] LABS: Hemoglobin A1C 7.6 % (4.5-6.2)
== END 2019-01-25 08:32 ==
PROVIDERS: PCP Nurse Practitioner Family; Visit Provider Nurse Practitioner Family
DX: E11.9 Type 2 diabetes mellitus without complications (principal)
CPT/HCPCS: 83036

== ENCOUNTER 2019-04-25 07:16 | Outpatient (CLI) | payer BC, SELFPAY ==
[2019-04-25 09:12] LABS: Hemoglobin A1C 6.8 % (4.5-6.2)
== END 2019-04-25 07:36 ==
PROVIDERS: PCP Nurse Practitioner Family; Visit Provider Nurse Practitioner Family
DX: E11.9 Type 2 diabetes mellitus without complications (principal)
CPT/HCPCS: 36415; 83036

== ENCOUNTER 2019-08-17 10:13 | Outpatient (CLI) | payer BC, SELFPAY ==
[2019-08-17 13:20] LABS: ALT 32 U/L (14-59); AST 23 U/L (15-37); Albumin 3.9 g/dL (3.4-5.0); Alkaline Phosphatase 73 U/L (46-116); BUN 12 mg/dL (7-18); Bilirubin, Total 0.5 mg/dL (0.2-1.0); CREATININE 0.82 mg/dL (0.55-1.02); Calcium 9.3 mg/dL (8.5-10.1); Calculated LDL 94 mg/dL (<100); Chloride 101 mmol/L (98-107); Cholesterol 154 mg/dL (<200); Glucose 181 mg/dL (74-106); HDL Cholesterol 34 mg/dL (40-60); Potassium 4.5 mmol/L (3.5-5.1); Sodium 140 mmol/L (136-145); Total Protein 7.4 g/dL (6.4-8.2); Triglyceride 132 mg/dL (<150)
[2019-08-17 13:24] LABS: Hemoglobin A1C 7.7 % (3.8-5.6)
== END 2019-08-17 10:33 ==
PROVIDERS: PCP Nurse Practitioner Family; Visit Provider Nurse Practitioner Family
DX: E11.9 Type 2 diabetes mellitus without complications (principal)
CPT/HCPCS: 36415; 80053; 80061; 83036

== ENCOUNTER 2020-03-14 08:56 | Outpatient (CLI) | payer BC, SELFPAY ==
--- NOTE | 2020-03-14 08:30 | DI.RAD_ITS ---
EXAM: XR ANKLE LT COMPLETE CLINICAL HISTORY: f/u L medial malleolus bony prominence TECHNIQUE: COMPARISON: CR LEFT ANKLE 2 VIEW from 09/13/2013 FINDINGS: Three views were obtained. There are prominent osteophytes of the sites of attachment Achilles tendo n and to a lesser degree plantar fascia on the calcaneus. Subtalar joints appear intact as visualize d. Mild degenerative changes of midfoot joints noted. Mild marginal osteophytes of the medial and l ateral malleoli. Fairly well maintained ankle mortise. IMPRESSION: Mild degenerative changes, no acute abnormality. RADIATION DOSE DELIVERED: Total DLP
== END 2020-03-14 09:16 ==
PROVIDERS: PCP Nurse Practitioner Family; Referring Provider Nurse Practitioner Family; Visit Provider Student in an Organized Health Care Education/Training Program
DX: M19.072 Primary osteoarthritis, left ankle and foot (principal); M25.772 Osteophyte, left ankle
CPT/HCPCS: 73610

== ENCOUNTER 2020-03-25 01:22 | Outpatient (CLI) | payer BC, SELFPAY ==
--- NOTE | 2020-03-25 10:40 | DI.MRI_ITS ---
EXAM: MR LOWER JOINT LT WO CLINICAL HISTORY: Recurrence of medial malleolus bony prominence,EXOSTOSIS OF BONE OF ANKLE,. TECHNIQUE: Multiplanar multisequence MRI was performed. COMPARISON: CR LEFT ANKLE 2 VIEW from 09/13/2013 MR MRI L LOWER JOINT WO CONT from 09/25/2013 CR XR ANKLE LT COMPLETE from 03/14/2020 FINDINGS: There is slight bony deformity of the medial malleolus but no abnormal marrow signal. There is no ove rlying soft tissue swelling or edema. No ligament or tendon abnormality is seen. There is no joint ef fusion. IMPRESSION: Mild bony deformity and spurring at the medial malleolus consistent with a combination of postsurgica l and degenerative changes. No tendon or ligament abnormality is seen. DATA REPOSITORY:
== END 2020-03-25 01:42 ==
PROVIDERS: PCP Nurse Practitioner Family; Visit Provider Student in an Organized Health Care Education/Training Program
DX: M77.8 Other enthesopathies, not elsewhere classified (principal); M89.9 Disorder of bone, unspecified
CPT/HCPCS: 73721

== ENCOUNTER 2020-07-14 17:13 | Emergency (ER) | payer BC, SELFPAY ==
--- NOTE | 2020-07-14 17:15 | DI.RAD_ITS ---
EXAM: XR FOOT RT COMPLETE CLINICAL HISTORY: right foot pain, foreign body distal 5th phalanx r. TECHNIQUE: 2D digital imaging was performed. COMPARISON: CR RIGHT FOOT COMPLETE from 03/27/2015 FINDINGS: BONES: No acute fracture is present. No bony destructive lesion is seen. JOINTS: No dislocation present. SOFT TISSUE: There is a 2 mm linear density medial to the proximal phalanx of the 5th toe. It is bes t appreciated on the oblique view and is suspicious for foreign body. There is soft tissue swelling lateral to the 5th metatarsal. IMPRESSION: 1. 2 mm linear density medial to the proximal phalanx of the 5th toe suspicious for foreign body. 2. No acute fracture or dislocation. DATA REPOSITORY: RADIATION DOSE DELIVERED:
[2020-07-14 17:17] VITALS: BP 125/88; PULSE 90; RESP 16; TEMP 36.3; O2SAT 99
--- NOTE | 2020-07-14 17:30 | W.ED.GENAD ---
Discharge Plan Disposition Patient Disposition: HOME Condition: Good Discharge Details Clinical Impression: Foreign body (FB) in soft tissue, Diabetes Primary Care Provider: Aria Wilson ED Provider: No Henning Home Meds and New Rx's Prescriptions: New cephalexin [Keflex] 500 mg capsule 500 mg PO QID Qty: 40 RF: 0 No Action loratadine 10 mg capsule 10 mg PO DAILY PRNRF: 0 melatonin 10 mg capsule 10 mg PO HS PRNRF: 0 liraglutide 0.6 mg/0.1 mL (18 mg/3 mL) pen injector 1.2 mg subcut DAILY Qty: 6 RF: 4 (DME) pen needle, diabetic [Novofine 32] 32 gauge x 1/4 needle See Rx Instructions .ROUTE .MEDSUPPLY Qty: 200 RF: 4 (DME) lancets [OneTouch Delica Plus Lancet] 33 gauge misc See Rx Instructions .ROUTE .MEDSUPPLY Qty: 200 RF: 4 (DME) blood-glucose meter [OneTouch Ultra2 Meter] Misc See Rx Instructions .ROUTE .MEDSUPPLY Qty: 1 RF: 4 (DME) OneTouch Ultra Blue Test Strip Strip See Rx Instructions .ROUTE .MEDSUPPLY Qty: 200 RF: 4 omega-3 fatty acids-fish oil 1 EACH capsule 1 ea PO DAILY RF: 0 buspirone 10 mg tablet 10 mg PO BID Qty: 180 RF: 4 metformin 1,000 mg tablet 1,000 mg PO BID Qty: 180 RF: 4 sertraline 50 mg tablet 75 mg PO DAILY Qty: 135 RF: 4 insulin degludec 200 unit/mL (3 mL) insulin pen 78 unit SC DAILY Qty: 12 RF: 4 cyclobenzaprine 10 mg tablet 10 mg PO TID PRN (Reason: back pain) Qty: 90 RF: 0 trazodone 100 mg tablet 100 mg PO HS Qty: 90 RF: 4 simvastatin 10 mg tablet 10 mg PO DAILY Qty: 90 RF: 4 omeprazole 20 mg capsule,delayed release(DR/EC) 20 mg PO DAILY Qty: 90 RF: 4 Discharge Instructions Additional Instructions: I have listed orthopedics for you to follow-up with, you may need to have this foreign body removed, start the antibiotic this evening soak your foot twice daily Return earlier should you have spreading redness, fever, worsening pain, elevation in blood sugar Referrals: Jesus Hurst DPM [[facility] STAFF PHYSICIAN] - Medical Decision Making Patient is afebrile and nontoxic Started on Keflex I did not feel comfortable attempting to remove the foreign body has been in place for the past week and she is a diabetic I have referred her to podiatry She only says outpatient recheck within 24 to 48 hours recommended x-ray reviewed and patient has a foreign body adjacent to Distal phalanx fifth I did not check patient's blood work as she has [id number] diabetic, she is afebrile nontoxic with stable vital, do not feel blood work is be helpful at this time Given that her symptoms returned to their worsening complaints and she will need outpatient evaluation 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 She stepped on an object removed ago and developed pain approximately a week later. She denies fever or chills. She denies any additional injuries. Pain is exacerbated with pressure on the area. Denies any chance of . Denies elevation in her blood glucose. Denies any additional complaints at this time. Denies fever or chills. Denies purulent drainage. Patient barefoot at time of injury. tetanus reportedly up-to-date.+ General Date/Time Provider Initiated Documentation: 07/14/20 17:14. Related Data Home Medications Medication Instructions Recorded Confirmed omega-3 fatty acids-fish oil 1 ea PO DAILY 01/06/16 07/14/20 loratadine 10 mg capsule 10 mg PO DAILY PRN cap 04/27/19 07/14/20 melatonin 10 mg capsule 10 mg PO HS PRN 04/27/19 07/14/20 buspirone 10 mg tablet 10 mg PO BID #180 tab 09/06/19 07/14/20 metformin 1,000 mg tablet 1,000 mg PO BID #180 tab 09/21/19 07/14/20 sertraline 50 mg tablet 75 mg PO DAILY #135 tab 10/04/19 07/14/20 insulin degludec 200 unit/mL (3 78 unit SC DAILY #12 syringe 04/16/20 07/14/20 mL) subcutaneous pen cyclobenzaprine 10 mg tablet 10 mg PO TID PRN #90 tab 06/05/20 07/14/20 blood sugar diagnostic #200 ea 06/26/20 06/26/20 blood-glucose meter #1 ea 06/26/20 06/26/20 lancets 33 gauge #200 ea 06/26/20 06/26/20 liraglutide 0.6 mg/0.1 mL (18 mg/3 1.2 mg SUBCUT DAILY #6 syrg 06/26/20 07/14/20 mL) subcutaneous pen injector omeprazole 20 mg capsule,delayed 20 mg PO DAILY #90 tab-cap 06/26/20 07/14/20 release pen needle, diabetic 32 gauge x #200 ea 06/26/20 06/26/2006/30 simvastatin 10 mg tablet 10 mg PO DAILY #90 tab-cap 06/26/20 07/14/20 trazodone 100 mg tablet 100 mg PO HS #90 tab 06/26/20 07/14/20 cephalexin [Keflex] 500 mg PO QID #40 cap 07/14/20 Previous Rx's Medication Instructions Recorded buspirone 10 mg tablet 10 mg PO BID #180 tab 09/06/19 metformin 1,000 mg tablet 1,000 mg PO BID #180 tab 09/21/19 sertraline 50 mg tablet 75 mg PO DAILY #135 tab 10/04/19 insulin degludec 200 unit/mL (3 78 unit SC DAILY #12 syringe 04/16/20 mL) subcutaneous pen cyclobenzaprine 10 mg tablet 10 mg PO TID PRN #90 tab 06/05/20 blood sugar diagnostic #200 ea 06/26/20 blood-glucose meter #1 ea 06/26/20 lancets 33 gauge #200 ea 06/26/20 liraglutide 0.6 mg/0.1 mL (18 mg/3 1.2 mg SUBCUT DAILY #6 syrg 06/26/20 mL) subcutaneous pen injector omeprazole 20 mg capsule,delayed 20 mg PO DAILY #90 tab-cap 06/26/20 release pen needle, diabetic 32 gauge x #200 ea 06/26/20 1/4 simvastatin 10 mg tablet 10 mg PO DAILY #90 tab-cap 06/26/20 trazodone 100 mg tablet 100 mg PO HS #90 tab 06/26/20 cephalexin [Keflex] 500 mg PO QID #40 cap 07/14/20 Allergies Allergy/AdvReac Type Severity Reaction Status Date / Time No Known Allergies Allergy Unverified 07/14/20 17:36 General Stated Complaint: GenMedical KAMRON: 3 Review of Systems Narrative: Review of systems negative times 7 aside from where indicated in HPI [facility] Medical History Allergic rhinitis Depressive disorder 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 Gastroesophageal reflux disease Generalized anxiety disorder Hyperlipidemia Nonalcoholic steatohepatitis (MARQUEZ) Biopsy proven at [facility] in 2006 Obesity PCOS (polycystic ovarian syndrome) Type 2 diabetes mellitus Surgical History History of ankle surgery (04/18/09) Left ankle: excision of recurrent exostosis to left malar region 10/12/2013 and 04/18/2009 (arthrotomy and osteophyte excision) History of bilateral carpal tunnel release (11/01/06) History of repair of anterior cruciate ligament of right knee S/P arthroscopic knee surgery Bilateral S/P colonoscopy (03/09/07) Status post incision and drainage (01/16/14) Of suppurative tenosynovitis (infection) of the flexor tendon of the left index finger Family History Mother Hyperlipidemia Melanoma Depression Father Essential hypertension Hyperlipidemia Stroke Brother Asthma Hyperlipidemia Type 2 diabetes mellitus Daughter No problems noted. 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 Pets and animals: Yes Pets and animals: cat(s) and dog(s) Sexually active: Yes Do you think of yourself as: straight/heterosexual Current gender identity: female What is your relationship status?: How often do you talk on the phone with friends or family?: once per week How often do you get together with friends or relatives?: once per week How often do you attend judaism or anglican services?: decline to answer Do you belong to any clubs or organized social groups?: no Panel score (0-1 are the most socially isolated patients): 1 What type of physical activity do you participate in: none Shae/Pentecostalism: None Special shae needs: No Seatbelt use: always Helmet use: No Drive intox or ride w/intox 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 Puncture noted, mild swelling, no erythema, no crepitus Course Vital Signs Vital signs: Vital Signs Temperature 36.3 C L 07/14/20 17:17 Pulse 90 07/14/20 17:17 Respiratory Rate 16 07/14/20 17:17 Blood Pressure 125/88 07/14/20 17:17 Pulse Oximetry 99 07/14/20 17:17 Temperature 36.3 C L 07/14/20 17:17 Pulse 90 07/14/20 17:17 Respiratory Rate 16 07/14/20 17:17 Respiratory Effort 07/14/20 17:25 Blood Pressure 125/88 07/14/20 17:17 Pulse Oximetry 99 07/14/20 17:17 Oxygen Delivery Method Room Air 07/14/20 17:17 Oxygen Flow Rate 0 07/14/20 17:17 Pain Level 5 07/14/20 17:17 Comment 07/14/20 17:17
--- NOTE | 2020-07-14 18:45 | DI.VRAD_ITS ---
PROCEDURE INFORMATION: Exam: XR Right Foot Complete Exam date and time: 07/14/2020 6:09 PM Age: 45 years old Clinical indication: Patient HX: Right foot pain, foreign body distal 5th phalanx TECHNIQUE: Imaging protocol: XR Right foot. Views: 3 or more views. COMPARISON: CR RIGHT FOOT COMPLETE 03/27/2015 3:51 PM FINDINGS: Bones/joints: There is a small linear hyperdensity adjacent to the 5th proximal phalanx, measuring approximately 2 mm (image 1, series 2). No evidence of acute fracture or dislocation. Soft tissues: There is suggestion of mild soft tissue swelling at the lateral aspect of the foot. IMPRESSION: 1. Small linear hyperdensity adjacent to the 5th proximal phalanx, likely related to reported foreign body. 2. No acute fracture or dislocation. Dictated and Authenticated by: Carey Landin MD. Ordering:NESTOR Sarabia MD
--- NOTE | 2020-07-14 18:53 | NUR.NOTE ---
referrral sent to dr edison Eubanks Note:
[2020-07-14] MEDS: Cephalexin 500 MG CAP PO (19:17)
== END 2020-07-14 19:20 | disposition home or self-care (01) ==
PROVIDERS: Emergency Provider Physician Assistant; PCP Nurse Practitioner Family
DX: S91.341A Puncture wound with foreign body, right foot, initial encounter (principal); W45.8XXA Other foreign body or object entering through skin, initial encounter; E11.9 Type 2 diabetes mellitus without complications; Z79.84 Long term (current) use of oral hypoglycemic drugs
CPT/HCPCS: 99283; 73630

== ENCOUNTER 2020-09-05 15:16 | Outpatient (REF) | payer BC, SELFPAY ==
[2020-09-05 14:10] LABS: COMMENT (LAB VIEW ONLY) 189.87 mg/dL; Microalb ug/mg Crea 10.4 ug/mg Cr
== END 2020-09-05 15:17 | disposition home or self-care (01) ==
LOC: LBN 15:16
PROVIDERS: PCP Nurse Practitioner Family; Visit Provider Nurse Practitioner Family
DX: E11.9 Type 2 diabetes mellitus without complications (principal)
CPT/HCPCS: 82043; 82570

== ENCOUNTER 2020-09-09 01:30 | Outpatient (CLI) | payer BC, SELFPAY ==
--- NOTE | 2020-09-09 07:45 | DI.MAMMO_ITS ---
EXAM: MAMMO SCREENING CLINICAL HISTORY: screening.[id number] TECHNIQUE: Mammograms were interpreted according to the usual protocol including computer analysis w [employer] CAD system, tomosynthesis and C-view imaging. COMPARISON: FINDINGS: The breasts are of moderate density with fairly symmetrical distribution fibroglandular tissue. No d ominant mass or clumped microcalcification is identified in either breast. The current examination i s compared with previous examinations including April 2018 and there has been no gross interval ch kasandra in appearance in comparison with the prior studies. IMPRESSION: No specific evidence of malignancy at this time. Routine screening examinations are suggested at yea rly intervals due to the family history of breast carcinoma. BI-RADS Category 1 - Negative Breast Density - Category B - Scattered areas of fibroglandular density
== END 2020-09-09 01:50 ==
PROVIDERS: PCP Nurse Practitioner Family; Visit Provider Nurse Practitioner Family
DX: Z12.31 Encounter for screening mammogram for malignant neoplasm of breast (principal); Z80.3 Family history of malignant neoplasm of breast
CPT/HCPCS: 77063; 77067

== ENCOUNTER 2020-09-24 03:14 | Outpatient (CLI) | payer BC, SELFPAY ==
[2020-09-24 13:10] LABS: ALT 33 U/L (14-59); AST 28 U/L (15-37); Albumin 3.7 g/dL (3.4-5.0); Alkaline Phosphatase 70 U/L (46-116); Anion Gap 5.4 mmol/L (3-11); BUN 6 mg/dL (7-18); Bilirubin, Total 0.5 mg/dL (0.2-1.0); CO2 28.6 mmol/L (21.0-32.0); CREATININE 0.9 mg/dL (0.55-1.02); Calcium 8.9 mg/dL (8.5-10.1); Calculated LDL 88 mg/dL (<100); Chloride 105 mmol/L (98-107); Cholesterol 149 mg/dL (<200); Glucose 103 mg/dL (74-106); HDL Cholesterol 38 mg/dL (40-60); Sodium 139 mmol/L (136-145); Total Protein 7.2 g/dL (6.4-8.2); Triglyceride 119 mg/dL (<150)
[2020-09-24 13:11] LABS: Hemoglobin A1C 8.2 % (<5.7)
== END 2020-09-24 03:15 | disposition home or self-care (01) ==
LOC: LOS 03:15
PROVIDERS: PCP Nurse Practitioner Family; Visit Provider Nurse Practitioner Family
DX: E11.9 Type 2 diabetes mellitus without complications (principal)
CPT/HCPCS: 36415; 80053; 80061; 83036

== ENCOUNTER 2021-02-09 02:47 | Outpatient (CLI) | payer BC, SELFPAY ==
[2021-02-09 12:35] LABS: Source Nasal/Nares
[2021-02-09 15:35] LABS: COVID-19 PCR Negative (Negative)
== END 2021-02-09 02:48 | disposition home or self-care (01) ==
LOC: LBO 02:47
PROVIDERS: PCP Nurse Practitioner Family; Visit Provider Student in an Organized Health Care Education/Training Program
DX: Z20.822 Contact with and (suspected) exposure to COVID-19 (principal); Z01.818 Encounter for other preprocedural examination
CPT/HCPCS: 87635

== ENCOUNTER 2021-02-10 09:25 | Day surgery (SDC) | payer BC, SELFPAY ==
[2021-02-10 09:39] VITALS: BP 117/78; PULSE 92; RESP 18; TEMP 36.6; O2SAT 97
[2021-02-10] MEDS: Lactated Ringers 1,000 ML 80 ML IV (10:09)
--- NOTE | 2021-02-10 10:37 | W.ANESPRE ---
General Info Date of Service Date Performed: 02/10/21 Height: 5 ft 10 in Weight: 104.326 kg Body Mass Index (BMI): 33.0 Surgical Procedure: Operation Date: 02/10/21 11:55 Proposed Procedures Side Surgeon p (R) ACHILLES DEBRIDEMENT,TREVA RESECTION & ACHILLES REPAIR Right Deangelo Cuevas MD Meds Allergies and Home Medications Allergies Allergy/AdvReac Type Severity Reaction Status Date / Time No Known Allergies Allergy Verified 02/10/21 09:46 Home Medication Medication Instructions Recorded omega-3 fatty acids-fish oil 1 ea PO DAILY 01/06/16 loratadine 10 mg capsule 10 mg PO DAILY PRN cap 04/27/19 melatonin 10 mg capsule 10 mg PO HS PRN 04/27/19 blood sugar diagnostic #200 ea 06/26/20 blood-glucose meter #1 ea 06/26/20 lancets 33 gauge #200 ea 06/26/20 pen needle, diabetic 32 gauge x #200 ea 06/26/20 1/4 simvastatin 10 mg tablet 10 mg PO DAILY #90 tab-cap 06/26/20 trazodone 100 mg tablet 100 mg PO HS #90 tab 06/26/20 buspirone 10 mg tablet 10 mg PO BID #180 tab 09/05/20 flash glucose scanning reader #1 ea 09/05/20 flash glucose sensor #6 ea 09/05/20 metformin 1,000 mg tablet 1,000 mg PO BID #180 tab 09/05/20 sertraline 50 mg tablet 75 mg PO DAILY #135 tab 09/05/20 semaglutide 14 mg tablet 14 mg PO DAILY #90 tab 10/03/20 cyclobenzaprine 10 mg tablet 10 mg PO TID PRN #90 tab 02/04/21 insulin degludec 78 unit SC HS 02/06/21 omeprazole 20 mg PO HS 02/06/21 Current Visit Medications: Current Medications Generic Name Dose Route Start Last Admin Trade Name Freq PRN Reason Stop Dose Admin Ringer's Solution 1,000 mls @ 80 mls/hr 02/10/21 06:00 02/10/21 10:09 IV 03/11/21 23:59 80 mls/hr INFUSION KEKE Administration Cefazolin Sodium 2,000 mg/ 100 mls @ 200 mls/hr 02/10/21 06:00 Sodium Chloride IVPB 02/10/21 16:00 PREOP KEKE IV Miscellaneous Supplies 1 each 02/10/21 06:00 Iv Access IV 03/11/21 23:59 DIRECTED KEKE Sodium Chloride 0 ml 02/10/21 06:00 Normal Saline Flush 10 Ml Syr IV 03/11/21 23:59 PRN PRN Sodium Chloride 0 ml 02/10/21 06:00 Normal Saline 10 Ml Vial IJ 03/11/21 23:59 DIRECTED PRN Sterile Water 0 ml 02/10/21 06:00 Water,Injection,Sterile 10 Ml Vial IJ 03/11/21 23:59 DIRECTED PRN PFSH Active Problems Active Problems: Problem Status Onset Code 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, 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 Type 2 diabetes mellitus E11.9 Hyperlipidemia E78.5 Nonalcoholic steatohepatitis (MARQUEZ) K75.81 PCOS (polycystic ovarian syndrome) E28.2 Generalized anxiety disorder F41.1 Depressive disorder F32.9 Gastroesophageal reflux disease K21.9 Allergic rhinitis J30.9 Obesity E66.9 Medical History Medical History Allergic rhinitis Depressive disorder 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 Gastroesophageal reflux disease Generalized anxiety disorder Hyperlipidemia Nonalcoholic steatohepatitis (MARQUEZ) Biopsy proven at [facility] in 2006 Obesity PCOS (polycystic ovarian syndrome) Type 2 diabetes mellitus Surgical History Surgical History History of ankle surgery (04/18/09) Left ankle: excision of recurrent exostosis to left malar region 10/12/2013 and 04/18/2009 (arthrotomy and osteophyte excision) History of bilateral carpal tunnel release (11/01/06) History of repair of anterior cruciate ligament of right knee S/P arthroscopic knee surgery Bilateral S/P colonoscopy (03/09/07) Status post incision and drainage (01/16/14) Of suppurative tenosynovitis (infection) of the flexor tendon of the left index finger Tobacco Smoking/Tobacco Use Status: Never Passive smoking exposure: Yes Alcohol Alcohol Intake: current Alcohol intake frequency: holidays/special occasions only Alcohol type: beer Substance Use Substance use: Never Substance use type: does not use Prental History History 3 Para Hx # Term Pregnancies Multiple births Hx # Pregnancies Ectopic pregnancies AB induced Hx Number of Living Children 1 AB spontaneous 2 Vital Signs and Lab Results Vital Signs Most Recent Vital Signs in EMR: Most Recent Vital Signs Temp Pulse Resp BP Pulse Ox 36.6 C 92 H 18 117/78 97 02/10/21 09:39 02/10/21 09:39 02/10/21 09:39 02/10/21 09:39 02/10/21 09:39 Point of Care Results Point of Care Results: Finger Stick Blood Glucose 78 02/10/21 10:01 Lab Results Blood Type / Crossmatch: No Data to Display Complete Blood Count: No Data to Display Complete Metabolic Panel: No Data to Display Liver Function Panel: No Data to Display Coagulation Panel: No Data to Display Cardiac Panel: No Data to Display Arterial Blood Gas: No Data to Display Venous Blood Gas: No Data to Display Pancreas Panel: No Data to Display Thyroid Panel: No Data to Display Infectious Disease: Coronavirus (COVID-19)(PCR) Negative (Negative) 02/09/21 09:27 02/09/21 Coronavirus 2019 Source Nasal/Nares 02/09/21 09:27 02/09/21 Blood Cultures: No Data to Display Toxicology Panel: No Data to Display Panel: No Data to Display Anesthesia Assessment and Plan Anesthesia History Personal History: No History of Anesthesia Complications Family History: No Family History of Anesthesia Complications Exercise Tolerance Exercise Tolerance: Metabolic Equivalents>4 Pertinent Negatives Pertinent Negatives: No Symptoms of GERD (Med controlled) Cardiac & Pulmonary Exam Cardiac Exam: Normal S1/S2 Heart Sounds Pulmonary Exam: Clear Bilateral Breath Sounds Airway Exam Known Difficult Airway: No Mallampati Class: 2 Mouth Opening: Normal (> 3cm) Thyromental Distance: Greater than 3 cm Neck Range of Motion: Full ROM Neck Circumference: Normal Teeth Condition: Normal Dentition ASA Classification ASA Score: ASA 2 Emergency Case?: No NPO Status NPO Status: NPO Clears >2 hours, Solids >8 hours Status Status: Negative HCG Anesthesia Plan Resuscitation Status: Full Code Anesthesia Technique: Spinal Anesthesia Airway Planned: Natural Airway Monitors Used: Standard Monitors
[2021-02-10 10:40] VITALS: BMI 33.0
--- NOTE | 2021-02-10 11:29 | PDOC.DSDIS_ITS ---
Discharge Plan Disposition Patient Disposition: HOME Condition: Good Discharge Details Reason For Visit: Right Insertional Achilles Tendonitis Attending Provider: Deangelo Cuevas Primary Care Provider: Aria Wilson Home Meds and New Rx's Prescriptions: New hydrocodone-acetaminophen 5-325 mg tablet 1 tab PO Q4H PRN (Reason: pain) Qty: 14 RF: 0 aspirin 81 mg tablet,delayed release (DR/EC) 81 mg PO BID Qty: 28 RF: 0 acetaminophen 500 mg tablet 500 mg PO Q6H PRN PRN (Reason: pain) Qty: 40 RF: 3 ibuprofen 600 mg tablet 600 mg PO TID PRN (Reason: pain) Qty: 90 RF: 3 Continued sertraline 50 mg tablet 75 mg PO DAILY Qty: 135 RF: 4 metformin 1,000 mg tablet 1,000 mg PO BID Qty: 180 RF: 4 buspirone 10 mg tablet 10 mg PO BID Qty: 180 RF: 4 (DME) FreeStyle Manish 14 Day Sensor Kit See Rx Instructions .ROUTE .MEDSUPPLY Qty: 6 RF: 4 (DME) FreeStyle Manish 14 Day [place] Misc See Rx Instructions .ROUTE .MEDSUPPLY Qty: 1 RF: 4 loratadine 10 mg capsule 10 mg PO DAILY PRNRF: 0 melatonin 10 mg capsule 10 mg PO HS PRNRF: 0 (DME) pen needle, diabetic [Novofine 32] 32 gauge x 1/4 needle See Rx Instructions .ROUTE .MEDSUPPLY Qty: 200 RF: 4 (DME) lancets [OneTouch Delica Plus Lancet] 33 gauge misc See Rx Instructions .ROUTE .MEDSUPPLY Qty: 200 RF: 4 (DME) blood-glucose meter [OneTouch Ultra2 Meter] Misc See Rx Instructions .ROUTE .MEDSUPPLY Qty: 1 RF: 4 (DME) OneTouch Ultra Blue Test Strip Strip See Rx Instructions .ROUTE .MEDSUPPLY Qty: 200 RF: 4 omega-3 fatty acids-fish oil 1 EACH capsule 1 ea PO DAILY RF: 0 trazodone 100 mg tablet 100 mg PO HS Qty: 90 RF: 4 simvastatin 10 mg tablet 10 mg PO DAILY Qty: 90 RF: 4 semaglutide 14 mg tablet 14 mg PO DAILY Qty: 90 RF: 4 cyclobenzaprine 10 mg tablet 10 mg PO TID PRN (Reason: back pain) Qty: 90 RF: 0 omeprazole 20 mg capsule,delayed release(DR/EC) 20 mg PO HS RF: 0 insulin degludec 200 unit/mL (3 mL) insulin pen 78 unit SC HS RF: 0 Discharge Instructions Additional Instructions: Activity: You are TOUCHDOWN WEIGHT BEARING. You should keep the leg elevated as much as possible. You may wiggle your toes and move your hip and knee. You may rest the leg on the ground when ambulating but don't try to walk on the splint. Dressings: You should keep your splint clean and dry. Do NOT get wet or dirty. If you have issues with your splint, please call the office at [phone] or the hospital after hours. Medications: - You should take Tylenol and Ibuprofen around the clock for baseline pain. - You have been prescribed a stronger narcotic, Hydrocodone, for breakthrough pain. - You should take a Baby Aspirin (81mg) twice a day for blood clot prevention. Follow-up: 2 weeks Referrals: Deangelo Cuevas MD [ [facility] STAFF PHYSICIAN] - Equipment/Supplies: Partial Weight Bearing Crutches Activity:: Elevate Remove Dressings/Wound Care:: Do Not Remove Shower/Bathe:: Cover Diet:: As Tolerated Discharge Orders Discharge Orders: Discharge Order (Routine); Ordered 02/10/21 Ordered By: Deangelo Cuevas DS: Diagnosis Discharge Diagnosis (1) Insertional Achilles tendinopathy: Status: Acute (2) Treva's deformity of right heel: Status: Acute
[2021-02-10] MEDS: ceFAZolin 2,000 MG in Normal Saline 100 ML 200 MG IVPB (11:32)
[2021-02-10] MEDS: Bupivacaine 0.25% Pres-Free 30 ML VIAL (12:51)
[2021-02-10 13:17] VITALS: BP 121/86; PULSE 80; RESP 14; TEMP 36.1; O2SAT 98
[2021-02-10 13:47] VITALS: BP 130/99; PULSE 75; RESP 16; TEMP 36.3; O2SAT 100
--- NOTE | 2021-02-10 14:08 | W.ANESPOSTOP ---
Postoperative Evaluation Date, Time and Location Date Performed: 02/10/21 Time Performed: 14:09 Patient Location: Day Surgery Unit Vital Signs Most Recent Imported Vital Signs: Most Recent Vital Signs Temp Pulse Resp BP Pulse Ox 36.3 C L 75 16 130/99 H 100 02/10/21 13:47 02/10/21 13:47 02/10/21 13:47 02/10/21 13:47 02/10/21 13:47 Pain Score Most Recent Pain Score: Most Recent Pain Score Pain Level 0 02/10/21 13:47 Assessment Mental Status: Awake (Alert & Oriented to Patient Baseline) Airway and Respiratory Function: Patent airway with normal (patient baseline) respiratory exam Cardiovascular Function: Hemodynamically Stable Hydration Status: Adequately Hydrated Nausea & Vomiting: No Nausea or Vomiting Pain: Pt. Denies Any Pain Peripheral Nerve Block: Patient did not receive a nerve block
--- NOTE | 2021-02-10 14:11 | W.PM.OP ---
Date of service: 02/10/21 Time of Service: 13:28 Operative Note Operative Note DATE OF PROCEDURE: 02/10/21 PRE-OP DIAGNOSIS: Insertional Calcific Tendinitis of Achilles Tendon - Right POST-OP DIAGNOSIS: same PROCEDURE: Right Achilles Insertion Debridement with Treva Resection and Reattachment of Achilles Tendon SURGEON: Deangelo Cuevas [employer] FLAKE MILLER: Samir Stroud ANESTHESIA TYPE: MAC and Spinal Refer to Anesthesia Record ESTIMATED BLOOD LOSS: 20 PATHOLOGY: none sent TOURNIQUET TIME: 0 COMPLICATIONS: None Patient was transported to: PACU Patient's condition: stable Indications: Jun is a 46 year old female who has had persistent pain about the heel. Clinical evaluation and x-rays demonstrated clear calcific tendinitis of the Achilles insertion. She has failed a host of conservative options but continues to have pain and difficulty with shoe wear. Therefore, I offered operative intervention in the form of Achilles debridement, bony prominence resection, and Achilles tendon repair as indicated. I reviewed the risk of the procedure to include bleeding, infection, pain, stiffness, damage to nerves and vessels, weakness, Achilles rerupture or retear, wound healing complications. Despite these risk,she elected to proceed. Findings: There were notable calcific prominence of the calcaneal tuberosity which were resected including intra-tendinous calcifications. A large Treva deformity was also resected. The calcaneus was smoothed and Achilles repaired back down to the calcaneus. Procedure Description: Jun was greeted in the preoperative holding area. Identity was confirmed the correct side was identified and marked. Consent was reviewed the patient and signed. History of physical was updated. She was taken to the operating room. A general anesthetic was administered and then the patient was placed into the prone position. Chest rolls were placed to well-padded the chest and allow for chest expansion. The arms were placed in the 9090 position with all bony prominences well-padded. There was gel pad placed underneath the knees and a prone ramp was placed underneath the operative leg. No tourniquet was used. Prophylactic antibiotics in the form of cefazolin were given. A timeout was performed for safe surgery. The proposed surgical site was then injected with 0.25% bupivacaine. A midline incision was then made overlying the Achilles tendon and its insertion on the calcaneus. This incision was taken down all the way to the peritenon of the Achilles tendon and its insertion on the calcaneus. Full-thickness flaps were then elevated medially and laterally to better expose Achilles tendon and its insertion. A midline incision was then made within the Achilles tendon. The tendon was elevated off of the calcaneus medially and laterally leaving some bands at the far reaches for later tensioning of the Achilles tendon. Calcific deposits from within the tendon were then removed sharply. Prominences over the calcaneal tuberosity were also removed with a rongeur. I took a chisel to then resect any Treva deformity. This was checked by dorsiflexing the foot and inspecting for any impingement of the calcaneal prominence onto the Achilles tendon I also used a chisel to chamfer the medial and lateral prominences of the calcaneal tuberosity as well. Once this was completed I then inspected the calcaneal insertion for any remnant sharp prominences or calcifications. A rasp was also used to smooth this down fully until there is no prominence projecting either posteriorly, medially, laterally. I made sure that the left attachments of the Achilles tendon to help guide the repair. I then placed a single 6.5 mm Mitek Fastin anchor into the superior margin of the calcaneal tuberosity. I placed a locking Krak?w type suture into each side of the Achilles tendon with 1 limb of the suture from the anchor. The extra limb of the suture was then passed through the tendon wants to serve as a lennie. Once these both were passed I was able to shuttle the tendon back down to the bone by pulling on the free limb of the suture. The sutures were then tied which reapproximated the Achilles tendon down to the tuberosity quite nicely. I also took a #2 FiberWire to reapproximate the tendon split in the Achilles through his entire length. Using the tails of the suture as well as the remnant tails from the previously tied sutures, I incorporated these into two Mitek Healix 4.75 mm knotless anchor, one medial and lateral. This reapproximated the tendon over the entire footprint of the calcaneus. The suture limbs were then cut. The periphery of the Achilles tendon slit was inspected and any residual split of the tendon was reapproximated. The wounds and thoroughly irrigated. The deep tissues were anesthetized with 0.25% bupivacaine. The deep tissue was closed with 3-0 Vicryl followed by a 4-0 nylon. Xeroform, 4 x 4, ABD, web roll was applied to the foot in a short leg splint was placed. The patient was then placed into the supine position. There is no notable complications from the prone positioning of the surgery. She was in transition back to the hospital stretcher in a stable condition. The procedure was tolerated well and the patient was transferred back to the PACU in stable condition.
== END 2021-02-10 14:35 | disposition home or self-care (01) ==
PROVIDERS: PCP Nurse Practitioner Family; Visit Provider Student in an Organized Health Care Education/Training Program
PROC: (CPT 27650; principal; 2021-02-10 11:45)
DX: M76.61 Achilles tendinitis, right leg (principal); M92.61 Juvenile osteochondrosis of tarsus, right ankle; E11.9 Type 2 diabetes mellitus without complications; K75.81 Nonalcoholic steatohepatitis (NASH)
CPT/HCPCS: 27654; 28119; 81025; C1713; J0690; J2250; J2405; J2704

== ENCOUNTER 2021-04-10 14:03 | Outpatient (REF) | payer BC, SELFPAY | END 2021-04-10 14:04 | disposition home or self-care (01) | LOC: LBN 14:03 | PROVIDERS: PCP Nurse Practitioner Family; Visit Provider Family Medicine | DX: N39.0 Urinary tract infection, site not specified (principal) | CPT/HCPCS: 87086 ==

== ENCOUNTER 2021-09-10 18:44 | Outpatient (REF) | payer BC, SELFPAY ==
[2021-09-10 13:41] LABS: COMMENT (LAB VIEW ONLY) 166.98 mg/dL
== END 2021-09-10 18:45 | disposition home or self-care (01) ==
LOC: LBN 18:44
PROVIDERS: PCP Nurse Practitioner Family; Visit Provider Nurse Practitioner Family
DX: E11.9 Type 2 diabetes mellitus without complications (principal); K75.81 Nonalcoholic steatohepatitis (NASH)
CPT/HCPCS: 82043; 82570

== ENCOUNTER 2021-09-22 02:48 | Outpatient (CLI) | payer BC, SELFPAY ==
[2021-09-22 12:17] LABS: ALT 26 U/L (14-59); AST 18 U/L (15-37); Albumin 4.1 g/dL (3.4-5.0); Alkaline Phosphatase 67 U/L (46-116); BUN 11 mg/dL (7-18); Bilirubin, Total 0.4 mg/dL (0.2-1.0); CREATININE 0.8 mg/dL (0.55-1.02); Calcium 9.1 mg/dL (8.5-10.1); Chloride 104 mmol/L (98-107); Glucose 88 mg/dL (74-106); Potassium 4.4 mmol/L (3.5-5.1); Sodium 142 mmol/L (136-145); Total Protein 7.5 g/dL (6.4-8.2)
== END 2021-09-22 02:49 | disposition home or self-care (01) ==
LOC: LBO 02:49
PROVIDERS: PCP Nurse Practitioner Family; Visit Provider Nurse Practitioner Family
DX: E11.9 Type 2 diabetes mellitus without complications (principal); K75.81 Nonalcoholic steatohepatitis (NASH)
CPT/HCPCS: 36415; 80053

== ENCOUNTER → 2022-02-18 00:54 | Outpatient (CLI) | payer BC, SELFPAY ==
--- NOTE | 2022-02-18 12:18 | DI.MAMMO_ITS ---
Exam(s) MAMMO SCREENING EXAM: MAMMO SCREENING CLINICAL HISTORY: screening,Z12.39 TECHNIQUE: Mammograms were interpreted according to the usual protocol including computer analysis w [employer] CAD system, tomosynthesis and C-view imaging. COMPARISON: FINDINGS: The breasts are of moderate density with fairly symmetrical distribution of fibroglandular tissue. N o dominant mass or clumped microcalcification is identified in either breast. The current examinatio n is compared with previous examinations including August 2020 and there has been no gross interval ch kasandra in appearance in comparison with the prior studies. IMPRESSION: No specific evidence of malignancy at this time. Routine screening examinations are suggested at yea rly intervals in this age group according to the ACS ACR guidelines. BI-RADS Category 1 - Negative Breast Density - Category B - Scattered areas of fibroglandular density
== END ==
PROVIDERS: PCP Nurse Practitioner Family; Visit Provider Nurse Practitioner Family
DX: Z12.31 Encounter for screening mammogram for malignant neoplasm of breast (principal)
CPT/HCPCS: 77063; 77067

== ENCOUNTER 2022-10-12 10:28 | Day surgery (SDC) | payer BC, SELFPAY ==
[2022-10-12] VITALS (8 sets, daily range): BP systolic 94–130; BP diastolic 71–86; PULSE 76–94; RESP 14–20; TEMP 36.3–36.7; O2SAT 92–97; BMI 33.0
--- NOTE | 2022-10-12 08:09 | W.ANESPRE ---
General Info Date of Service Date Performed: 10/12/22 Height: 5 ft 10 in Weight: 104.326 kg Body Mass Index (BMI): 33.0 Surgical Procedure: Operation Date: 10/12/22 13:10 Proposed Procedure Side Surgeon p Trigger Finger Release, RMF Right Deangelo Cuevas MD s Debridement of Heel Left Deangelo Cuevas MD Meds Allergies and Home Medications Allergies Allergy/AdvReac Type Severity Reaction Status Date / Time No Known Allergies Allergy Verified 10/12/22 10:44 Home Medication Medication Instructions Recorded omega-3 fatty acids-fish oil 360 1 ea PO DAILY 01/06/16 mg-1,200 mg capsule loratadine 10 mg capsule 10 mg PO DAILY PRN 04/27/19 melatonin 10 mg capsule 10 mg PO HS PRN 04/27/19 blood-glucose meter ([email or web address] Pty LTDTouch #1 ea 06/26/20 Ultra2 Meter) flash glucose scanning reader #1 ea 09/05/20 (FreeStyle Manish 14 Day [place]) flash glucose sensor (DroneCastStyle #6 ea 09/05/20 Manish 14 Day Sensor kit) acetaminophen 500 mg tablet 500 mg PO Q6H PRN PRN pain #40 tabs 02/10/21 blood sugar diagnostic #200 ea 06/05/21 lancets 33 gauge (OneTouch Delica #200 ea 06/05/21 Plus Lancet) pen needle, diabetic 32 gauge x #200 ea 06/05/21 1/ (Novofine 32) metformin 1,000 mg tablet 1,000 mg PO BID #180 tabs 09/30/21 buspirone 10 mg tablet 10 mg PO BID #180 tabs 10/26/21 simvastatin 10 mg tablet 10 mg PO DAILY #90 tab-caps 12/02/21 semaglutide 14 mg tablet 14 mg PO DAILY #90 tabs 12/09/21 sertraline 100 mg tablet 100 mg PO DAILY #90 tabs 02/09/22 insulin degludec 200 unit/mL (3 78 unit (0.39 mL) subcut DAILY #36 04/07/22 mL) subcutaneous pen (Tresiba mL FlexTouch U-200 insulin) ibuprofen 600 mg tablet 600 mg PO TID PRN pain #270 tabs 05/12/22 trazodone 100 mg tablet 100 mg PO HS #90 tabs 06/23/22 cyclobenzaprine 10 mg tablet 10 mg PO TID PRN back pain #90 tabs 07/28/22 omeprazole 20 mg capsule,delayed 20 mg PO HS 10/11/22 release Current Visit Medications: Current Medications Generic Name Dose Route Start Last Admin Trade Name Srinivasanq PRN Reason Stop Dose Admin Acetaminophen 1,000 mg 10/12/22 06:00 Acetaminophen 500 Mg Tab PO 10/12/22 16:00 PREOP KEKE Acetaminophen 650 mg 10/12/22 07:26 Acetaminophen 325 Mg Tab PO Q4H PRN PRN Hydrocodone Bitart/Acetaminophen 0 tab 10/12/22 07:26 Hydrocodone 5/Acetaminophen 325 Tab PO Q3H PRN PRN Pain Celecoxib 400 mg 10/12/22 06:00 Celecoxib 200 Mg Cap PO 10/12/22 16:00 PREOP KEKE Ringer's Solution 1,000 mls @ 80 mls/hr 10/12/22 06:00 IV 10/12/22 23:59 INFUSION [facility] Cefazolin Sodium/Dextrose 2 gm in 50 mls @ 100 mls/hr 10/12/22 06:00 Ancef Duplex IVPB 10/12/22 23:59 PREOP [facility] IV Miscellaneous Supplies 1 each 10/12/22 06:00 Iv Access IV 10/12/22 23:59 DIRECTED KEKE Sodium Chloride 0 ml 10/12/22 06:00 Normal Saline Flush 10 Ml Syr IV 10/12/22 23:59 PRN PRN Sodium Chloride 0 ml 10/12/22 06:00 Normal Saline 10 Ml Vial IJ 10/12/22 23:59 DIRECTED PRN Sterile Water 0 ml 10/12/22 06:00 Water,Injection,Sterile 10 Ml Vial IJ 10/12/22 23:59 DIRECTED PRN PFSH Active Problems Active Problems: Problem Status Onset Code Trigger finger, left middle finger M65.332 Type 2 diabetes mellitus E11.9 Hyperlipidemia E78.5 Nonalcoholic steatohepatitis (MARQUEZ) K75.81 PCOS (polycystic ovarian syndrome) E28.2 Generalized anxiety disorder F41.1 Depressive disorder F32.9 Gastroesophageal reflux disease K21.9 Allergic rhinitis J30.9 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 Obesity E66.9 Treva's deformity of left heel M92.62 Medical History Medical History Treva's deformity of right heel Status post excision and debridement: 02/10/2021 Surgical History Surgical History History of ankle surgery (04/18/09) Left ankle: excision of recurrent exostosis to left malar region 10/12/2013 and 04/18/2009 (arthrotomy and osteophyte excision) History of bilateral carpal tunnel release (11/01/06) History of repair of anterior cruciate ligament of right knee History of surgery on extremity (02/10/21) Right Achilles Insertion Debridement with Terva Resection and Reattachment of Achilles Tendon S/P arthroscopic knee surgery Bilateral S/P colonoscopy (03/09/07) Status post incision and drainage (01/16/14) Of suppurative tenosynovitis (infection) of the flexor tendon of the left index finger Tobacco Smoking/Tobacco Use Status: Never Passive smoking exposure: Yes Alcohol Alcohol Intake: current Alcohol intake frequency: a few times a month Alcohol type: beer Substance Use Substance use: Never Substance use type: does not use Prental History History 3 Para Hx # Term Pregnancies Multiple births Hx # Pregnancies Ectopic pregnancies AB induced Hx Number of Living Children 1 AB spontaneous 2 Vital Signs and Lab Results Vital Signs Most Recent Vital Signs in EMR: Temp Pulse Resp BP Pulse Ox 36.3 C L 94 H 20 94/71 L 97 10/12/22 10:30 10/12/22 10:30 10/12/22 10:30 10/12/22 10:30 10/12/22 10:30 Lab Results Blood Type / Crossmatch: No Data to Display Complete Blood Count: No Data to Display Complete Metabolic Panel: Hemoglobin A1c 6.4 % (4.5-5.7) H 09/16/22 09:01 Liver Function Panel: No Data to Display Coagulation Panel: No Data to Display Cardiac Panel: No Data to Display Arterial Blood Gas: No Data to Display Venous Blood Gas: No Data to Display Pancreas Panel: No Data to Display Thyroid Panel: No Data to Display Infectious Disease: No Data to Display Blood Cultures: No Data to Display Toxicology Panel: No Data to Display Panel: No Data to Display Anesthesia Assessment and Plan Anesthesia History Personal History: No History of Anesthesia Complications Family History: No Family History of Anesthesia Complications Exercise Tolerance Exercise Tolerance: Metabolic Equivalents>4 Cardiac & Pulmonary Exam Cardiac Exam: Normal S1/S2 Heart Sounds Pulmonary Exam: Clear Bilateral Breath Sounds Implantable Cardiac Device Does patient have a Pacemaker or an ICD?: No Airway Exam Known Difficult Airway: No Mallampati Class: 2 Mouth Opening: Normal (> 3cm) Thyromental Distance: Greater than 3 cm Neck Range of Motion: Full ROM Neck Circumference: Normal Teeth Condition: Normal Dentition ASA Classification ASA Score: ASA 2 Emergency Case?: No NPO Status NPO Status: NPO Clears >2 hours, Solids >8 hours Status Status: Not Per Patient (unable to pee, states not preg, will try to pee prior to OR. ) Anesthesia Plan Resuscitation Status: Full Code Anesthesia Technique: General Anesthesia Airway Planned: Endotracheal Tube Monitors Used: Standard Monitors Preoperative Comments:: 47 yo female for heel debridement, trigger finger. will start stretcher for finger, then prone for heel. Currently hot and sweaty, BS performed, 77. She does not check her BS at home, she thinks it may be a hot flash. discussed that we can give her some D10 in the OR to bring her up a touch. Sig PMHx: DM2 (semaglutide, metformin, degludec), MARQUEZ, anxiety/depression, GERD, PCOS, never smoker, occ EtOH. Previous Anes: - Achilles repair, chloropropane spinal, prop sedation.
[2022-10-12] MEDS: Lactated Ringers 1,000 ML 80 ML IV (11:02)
[2022-10-12] MEDS: Celecoxib 200 MG CAP 400 MG PO (11:17)
[2022-10-12] MEDS: Acetaminophen 500 MG TAB 1000 MG PO (11:17)
[2022-10-12] MEDS: DEXTROSE 10%-WATER 500 ML 30 ML IV (11:58)
[2022-10-12] MEDS: ceFAZolin 2 GM/50 ML BAG IVPB (11:58)
[2022-10-12] MEDS: Sodium Bicarbonate 50 MEQ/50 ML VIAL (12:49)
[2022-10-12] MEDS: Lidocaine 1% Pres-Free W/EPI 1/200,000 10 ML VIAL (12:49)
--- NOTE | 2022-10-12 14:49 | W.ANESPOSTOP ---
Postoperative Evaluation Date, Time and Location Date Performed: 10/12/22 Time Performed: 14:49 Patient Location: Day Surgery Unit Vital Signs Most Recent Imported Vital Signs: Most Recent Vital Signs Temp Pulse Resp BP Pulse Ox 36.6 C 76 16 117/80 96 10/12/22 14:29 10/12/22 14:29 10/12/22 14:29 10/12/22 14:29 10/12/22 14:29 Pain Score Most Recent Pain Score: Most Recent Pain Score Pain Level 0 10/12/22 14:29 Assessment Mental Status: Awake (Alert & Oriented to Patient Baseline) Airway and Respiratory Function: Patent airway with normal (patient baseline) respiratory exam Cardiovascular Function: Hemodynamically Stable Hydration Status: Adequately Hydrated Nausea & Vomiting: No Nausea or Vomiting Pain: Pain is tolerable per patient Peripheral Nerve Block: Patient did not receive a nerve block
--- NOTE | 2022-10-12 14:58 | W.PM.DSUDISC ---
Date of service: 10/12/22 Time of Service: 14:58 Discharge Plan Disposition Patient Disposition: Home Condition: Good Discharge Details Reason For Visit: Left Achilles Tendinitis, Right Middle Finger Trig Attending Provider: Deangelo Cuevas Primary Care Provider: Aria Wilson Home Meds and New Rx's Prescriptions: New hydrocodone-acetaminophen 5-325 mg tablet 1 tab PO Q4H PRN (Reason: pain) Qty: 14 0RF Continued (DME) FreeStyle Manish 14 Day Sensor Kit See Rx Instructions .ROUTE .MEDSUPPLY Qty: 6 4RF Rx Instructions: Continuous glucose monitor (DME) FreeStyle Manish 14 Day [place] Misc See Rx Instructions .ROUTE .MEDSUPPLY Qty: 1 4RF Rx Instructions: Continuous glucose monitor loratadine 10 mg capsule 10 mg PO DAILY PRN melatonin 10 mg capsule 10 mg PO HS PRN (DME) blood-glucose meter [OneTouch Ultra2 Meter] [facility] [place]ructions .ROUTE .MEDSUPPLY Qty: 1 4RF Rx Instructions: Check blood sugar in the morning and 2 hours after biggest meal insulin degludec [Tresiba FlexTouch U-200] 200 unit/mL (3 mL) insulin pen 78 unit subcut DAILY Qty: 36 3RF omega-3 fatty acids-fish oil 1 EACH capsule 1 ea PO DAILY (DME) blood sugar diagnostic Strip See Rx Instructions .ROUTE .MEDSUPPLY Qty: 200 4RF Rx Instructions: Check blood sugar in the morning and 2 hours after biggest meal (DME) lancets [OneTouch Delica Plus Lancet] 33 gauge misc See Rx Instructions .ROUTE .MEDSUPPLY Qty: 200 4RF Rx Instructions: Check blood sugar in the morning and 2 hours after biggest meal (DME) pen needle, diabetic [Novofine 32] 32 gauge x 1/4 needle See Rx Instructions .ROUTE .MEDSUPPLY Qty: 200 4RF Rx Instructions: Use separate needle for insulin and victoza pens daily metformin 1,000 mg tablet 1,000 mg PO BID Qty: 180 4RF Rx Instructions: Take 1 tablet (1000mg )twice a day buspirone 10 mg tablet 10 mg PO BID Qty: 180 4RF simvastatin 10 mg tablet 10 mg PO DAILY Qty: 90 3RF semaglutide 14 mg tablet 14 mg PO DAILY Qty: 90 3RF Rx Instructions: Take 1 tablet daily sertraline 100 mg tablet 100 mg PO DAILY Qty: 90 3RF Rx Instructions: Take 1 tablet daily ibuprofen 600 mg tablet 600 mg PO TID PRN (Reason: pain) Qty: 270 3RF trazodone 100 mg tablet 100 mg PO HS Qty: 90 3RF cyclobenzaprine 10 mg tablet 10 mg PO TID PRN (Reason: back pain) Qty: 90 0RF acetaminophen 500 mg tablet 500 mg PO Q6H PRN PRN (Reason: pain) Qty: 40 3RF omeprazole 20 mg capsule,delayed release(DR/EC) 20 mg PO HS Discharge Instructions Additional Instructions: Achilles Debridement Discharge Instructions Activity: You are NON WEIGHT BEARING. You should keep the leg elevated as much as possible. You may wiggle your toes and move your hip and knee. You may use the right hand as tolerated. You should work on motion rather than using it too aggressively in the beginning. Dressings: You should keep your splint clean and dry. Do NOT get wet or dirty. If you have issues with your splint, please call the office at [phone] or the hospital after hours. The right hand dressing may come down in 48 hours and the wound covered with a bandaid. Medications: - You should take your regular Tylenol and Ibuprofen around the clock for baseline pain. - You have been prescribed a stronger narcotic, Hydrocodone, for breakthrough pain. 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
--- NOTE | 2022-10-12 16:27 | W.PM.OP ---
Date of service: 10/12/22 Time of Service: 13:30 Operative Note Operative Note DATE OF PROCEDURE: 10/12/22 PRE-OP DIAGNOSIS: Insertional Calcific Achilles Tendinitis with Treva Deformity - LEFT Trigger Finger - RIGHT middle finger POST-OP DIAGNOSIS: same PROCEDURE: Right Middle Finger Trigger Finger (A1 Lennie) release Left Achilles debridement with resection of bony prominence, calcific disease and Treva deformity with repair of Achilles tendon SURGEON: Deangelo Cuevas EXTRACT PULLER: Ellen Ambriz ANESTHESIA TYPE: General LMA/ETT Refer to Anesthesia Record ESTIMATED BLOOD LOSS: 20 PATHOLOGY: none sent TOURNIQUET TIME: 0 COMPLICATIONS: None Patient was transported to: PACU Indications: Jun is a 47 year old female who has had persistent pain about the heel. Clinical evaluation and x-rays demonstrated calcific tendinitis of the Achilles insertion with large calcific prominence as well as a bony Treva deformity. She has failed a host of conservative options but continues to have pain and difficulty with shoe wear. She had successful surgery on the right side. Therefore, I offered operative intervention in the form of Achilles debridement, bony prominence resection, Treva resection, and Achilles tendon repair as indicated. I reviewed the risk of the procedure to include bleeding, infection, pain, stiffness, damage to nerves and vessels, weakness, Achilles rerupture or retear, wound healing complications. Despite these risk, she elected to proceed. Additionally, she has been having increasing issues with a trigger finger of the right middle finger. This is interfering with her daily activities. I discussed treatment options with her including injection versus A1 lennie release and she desired to have the trigger finger release at the same time as her left foot surgery. I discussed the technical details of the surgery. I reviewed the risk to include bleeding, infection, pain, stiffness, damage nerves and vessels, inflammatory changes, scarring, need for repeat procedures. Despite these risk, she elects to proceed. Findings: There were notable calcific prominence of the calcaneal tuberosity which were resected and the calcaneus smoothed. The Treva deformity was resected and Achilles repaired back down to the calcaneus with a double row knotless repair. Procedure Description: Jun was greeted in the preoperative holding area. Identity was confirmed the correct side was identified and marked. Consent was reviewed the patient and signed. History of physical was updated. She was taken to the operating room. A general anesthetic was administered. Prophylactic antibiotics in the form of cefazolin were given. A timeout was performed for safe surgery. Before transitioning to the prone position for the Achilles partial end of the case I performed the trigger finger release on the right middle finger. The right hand was placed onto a hand table and the hand was prepped with ChloraPrep. It was draped with standard draping. A digital block was performed of the area, right middle finger. A longitudinal incision was made overlying the A1 lennie. Blunt dissection was carried down to the level of the A1 lennie. Retraction of all other elements were made medial and lateral with excellent visualization of the A1 lennie. Using a tenotomy scissor the A1 lennie was released. There was some minor fraying seen of the tendons which was resected. The tendons were removed from the hand and showed no other signs of injury. Distal and proximal aspects of the wound were inspected and showed no other signs of compression against the tendon. The wound was then irrigated and the skin was closed with a 4-0 Nylon.? This was dressed with gauze and a Conform dressing.? Attention was then turned to the left foot portion of the case. Jun was placed into the prone position. Chest rolls were placed under the lateral aspects of the chest and allow for chest expansion. The arms were placed in the 9090 position with all bony prominences well-padded. There was gel pad placed underneath the knees and a prone ramp was placed underneath the operative leg. No tourniquet was used. The proposed surgical site was then injected with 0.25% bupivacaine. A midline incision was then made overlying the Achilles tendon and its insertion on the calcaneus. This incision incorporated the previous scar from a laceration suffered 4 years ago. This incision was taken down all the way to the peritenon of the Achilles tendon and its insertion on the calcaneus. Full-thickness flaps were then elevated medially and laterally to better expose Achilles tendon and its insertion. A midline incision was then made within the Achilles tendon. The tendon was elevated off of the calcaneus medially and laterally leaving some bands at the far reaches for later tensioning of the Achilles tendon. Calcific deposits from in the tendon were then removed sharply. Prominences over the calcaneal tuberosity were also removed with a rongeur. I took a chisel to then resect any Treva deformity. This was checked by dorsiflexing the foot and inspecting for any impingement of the calcaneal prominence onto the Achilles tendon I also used a chisel to chamfer the medial lateral prominences of the calcaneal tuberosity as well. Once this was completed I then inspected the calcaneal insertion for any remnant sharp prominences or calcifications. A rasp was also used to smooth this down fully until there is no prominence projecting either posteriorly, medially, laterally. I made sure that the left attachments of the Achilles tendon to help guide the repair. A double row repair of the Achilles tendon was then performed. Prior to proceeding with this the deeper tissues were injected with the remnant of the 0.25% bupivacaine. 2 4.5 mm Mitek Healix anchors were placed within the bony bed. Once again, the remnant Achilles tendon was used as an indicator for appropriate tensioning. 1 tape suture from each of these anchors was then placed in a crossing horizontal mattress type configuration on each side of the split. The other suture from within the anchor was then utilized to close the split of the tendon and once again reapproximate the medial row. I then created a crossing type pattern of suture utilizing two 4.75 mm Mytec Healix knotless anchors. The sutures were tightened and then inserted into the anchor and into the calcaneus with excellent fixation. This reapproximated the footprint of the Achilles tendon at the level of the tuberosity and then along the posterior aspect of the calcaneus. The suture limbs were then cut. The wound was thoroughly irrigated. Portions of the peritenon were then closed with 0 Vicryl. The deep tissue was closed with 3-0 Vicryl followed by a 4-0 nylon. Xeroform, 4 x 4, ABD, web roll was applied to the foot in a short leg splint was placed. The patient was then placed into the supine position. There is no notable complications from the prone positioning of the surgery. She was transitioned back to the hospital stretcher in a stable condition. There were no notable complications from the prone positioning or from the surgery. The procedure was tolerated well and the patient was transferred back to the PACU in stable condition.
== END 2022-10-12 15:20 | disposition home or self-care (01) ==
PROVIDERS: PCP Nurse Practitioner Family; Visit Provider Student in an Organized Health Care Education/Training Program
PROC: (CPT 26055; principal; 2022-10-12 13:00)
PROC: (CPT 28119; 2022-10-12 13:00)
DX: M92.62 Juvenile osteochondrosis of tarsus, left ankle (principal); M65.331 Trigger finger, right middle finger
CPT/HCPCS: 28119; 26055; 27654; J0690; J1100; J1885; J2405; J2704

== ENCOUNTER 2022-11-09 03:32 | Emergency (ER) | payer BC, SELFPAY ==
[2022-11-09 03:35] VITALS: BP 153/98; PULSE 86; RESP 17; TEMP 36.4; O2SAT 98
--- NOTE | 2022-11-09 03:43 | ED.GENADUL_ITS ---
Discharge Plan Disposition Patient Disposition: Home Condition: Stable Discharge Details Clinical Impression: Cat bite of left thumb Primary Care Provider: Aria Wilson ED Provider: Jeremiah Yun Meds and New Rx's Prescriptions: New amoxicillin-pot clavulanate 875-125 mg tablet 1 tab PO BID 7 Days Qty: 14 0RF Continued (DME) FreeStyle Manish 14 Day Sensor Kit See Rx Instructions .ROUTE .MEDSUPPLY Qty: 6 4RF Rx Instructions: Continuous glucose monitor (DME) FreeStyle Manish 14 Day Isabella Misc See Rx Instructions .ROUTE .MEDSUPPLY Qty: 1 4RF Rx Instructions: Continuous glucose monitor loratadine 10 mg capsule 10 mg PO DAILY PRN melatonin 10 mg capsule 10 mg PO HS PRN (DME) blood-glucose meter [OneTouch Ultra2 Meter] Misc See Rx Instructions .ROUTE .MEDSUPPLY Qty: 1 4RF Rx Instructions: Check blood sugar in the morning and 2 hours after biggest meal insulin degludec [Tresiba FlexTouch U-200] 200 unit/mL (3 mL) insulin pen 78 unit subcut DAILY Qty: 36 3RF omega-3 fatty acids-fish oil 1 EACH capsule 1 ea PO DAILY (DME) blood sugar diagnostic Strip See Rx Instructions .ROUTE .MEDSUPPLY Qty: 200 4RF Rx Instructions: Check blood sugar in the morning and 2 hours after biggest meal (DME) lancets [OneTouch Delica Plus Lancet] 33 gauge misc See Rx Instructions .ROUTE .MEDSUPPLY Qty: 200 4RF Rx Instructions: Check blood sugar in the morning and 2 hours after biggest meal (DME) pen needle, diabetic [Novofine 32] 32 gauge x 1/4 needle See Rx Instructions .ROUTE .MEDSUPPLY Qty: 200 4RF Rx Instructions: Use separate needle for insulin and victoza pens daily buspirone 10 mg tablet 10 mg PO BID Qty: 180 4RF simvastatin 10 mg tablet 10 mg PO DAILY Qty: 90 3RF semaglutide 14 mg tablet 14 mg PO DAILY Qty: 90 3RF Rx Instructions: Take 1 tablet daily sertraline 100 mg tablet 100 mg PO DAILY Qty: 90 3RF Rx Instructions: Take 1 tablet daily ibuprofen 600 mg tablet 600 mg PO TID PRN (Reason: pain) Qty: 270 3RF trazodone 100 mg tablet 100 mg PO HS Qty: 90 3RF cyclobenzaprine 10 mg tablet 10 mg PO TID PRN (Reason: back pain) Qty: 90 0RF metformin 1,000 mg tablet 1,000 mg PO BID Qty: 180 3RF Rx Instructions: Take 1 tablet (1000mg )twice a day acetaminophen 500 mg tablet 500 mg PO Q6H PRN PRN (Reason: pain) Qty: 40 3RF omeprazole 20 mg capsule,delayed release(DR/EC) 20 mg PO HS hydrocodone-acetaminophen 5-325 mg tablet 1 tab PO Q4H PRN (Reason: pain) Qty: 14 0RF Discharge Instructions Additional Instructions: Please read all of the information that accompanies these instructions. You were seen in the emergency department for your cat bite. You are receiving an antibiotic that you should take as directed. The orthopedic team will call you for follow-up later this week. Please return to the emergency department if if you develop worsening pain swelling any fevers or chills. On preliminary interpretation, your x-ray showed no acute abnormalities. If the radiology team notices anything abnormal you will receive a phone call from the emergency department. For your pain please take medications as follows: 1. Take acetaminophen (Tylenol), 1,000 mg (two 500 mg tabs) every 6 hours 2. Take ibuprofen (Advil), 200 mg every 6 hours. Discharge Data Discharge Date/Time-TO BE ENTERED AT DEPARTURE: 11/09/22 05:03 Medical Decision Making This is an overall very well-appearing normothermic and not tachycardic [id number] diabetic female with left thumb puncture secondary to cat bite with localized swelling concerning for the possibility of early infection for which she will receive prophylactic treatment with amoxicillin clavulanic acid. Given no large gaping wound no indication for primary closure. Given domestic animals will defer rabies prophylaxis.Tetanus immunization most r ecently in December 2018 so no indication for update. Patient cleansed wound extensively prior to arrival which was 8 hours ago so I do not feel that additional bedside irrigation will be beneficial at this juncture. Will obtain plain film to assess for any obvious osseous abnormalities and any retained teeth fragments. Patient has intact flexion and extension in her thumb reassuring against tendon injury. It is certainly possible that the puncture from a cat bite could have violated the joint or that her swelling is simply a local site reaction. I advised the patient to return to the emergency department if she has worsening pain, worsening swelling or if she develops any fevers. Otherwise I have advised elevation rest and ibuprofen and acetaminophen as needed for pain. 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 On my preliminary interpretation there are no acute osseous abnormalities on the patient's left thumb plain film. I advised her that she would receive a call from the emergency department if the radiologist's over read my preliminary results. HPI General Date/Time Provider Initiated Documentation: 11/09/22 03:43 . HPI Narrative: This is a right-handed 47-year-old insulin-dependent diabetic female in the emergency department in the setting of a wound she sustained yesterday evening at 8:30 PM to her left thumb from a cat bite. She reports her was holding the cat and she was attempting to give the cat some medicine. She sustained a puncture wound to her left thumb. She washed the area extensively. She does note that several days prior she sustained a superficial laceration to her left thumb from a piece of glass. She notes worsening pain and swelling in her left hand needing her to present to the emergency department. She has not had any fevers. She denies routine tobacco and illicits but occasionally drinks alcohol. She has previously had a cat bite which has required her to have surgery and so she is concerned about the possibility of infection. Related Data Home Medications Medication Instructions Recorded Confirmed omega-3 fatty acids-fish oil 360 1 ea PO DAILY 01/06/16 10/22/22 mg-1,200 mg capsule loratadine 10 mg capsule 10 mg PO DAILY PRN 04/27/19 10/22/22 melatonin 10 mg capsule 10 mg PO HS PRN 04/27/19 10/22/22 blood-glucose meter (OneTouch #1 ea 06/26/20 10/22/22 Ultra2 Meter) flash glucose scanning reader #1 ea 09/05/20 10/22/22 (FreeStyle Manish 14 Day Isabella) flash glucose sensor (FreeStyle #6 ea 09/05/20 10/22/22 Manish 14 Day Sensor kit) acetaminophen 500 mg tablet 500 mg PO Q6H PRN PRN pain #40 tabs 02/10/21 10/22/22 blood sugar diagnostic #200 ea 06/05/21 10/22/22 lancets 33 gauge (OneTouch Delica #200 ea 06/05/21 10/22/22 Plus Lancet) pen needle, diabetic 32 gauge x #200 ea 06/05/21 10/22/22 1/ (Novofine 32) buspirone 10 mg tablet 10 mg PO BID #180 tabs 10/26/21 10/22/22 simvastatin 10 mg tablet 10 mg PO DAILY #90 tab-caps 12/02/21 10/22/22 semaglutide 14 mg tablet 14 mg PO DAILY #90 tabs 12/09/21 10/22/22 sertraline 100 mg tablet 100 mg PO DAILY #90 tabs 02/09/22 10/22/22 insulin degludec 200 unit/mL (3 78 unit (0.39 mL) subcut DAILY #36 04/07/22 10/22/22 mL) subcutaneous pen (Tresiba mL FlexTouch U-200 insulin) ibuprofen 600 mg tablet 600 mg PO TID PRN pain #270 tabs 05/12/22 10/22/22 trazodone 100 mg tablet 100 mg PO HS #90 tabs 06/23/22 10/22/22 cyclobenzaprine 10 mg tablet 10 mg PO TID PRN back pain #90 tabs 07/28/22 10/22/22 omeprazole 20 mg capsule,delayed 20 mg PO HS 10/11/22 10/22/22 release hydrocodone 5 mg-acetaminophen 325 1 tab PO Q4H PRN pain #14 tabs 10/12/22 10/22/22 mg tablet metformin 1,000 mg tablet 1,000 mg PO BID #180 tabs 10/28/22 amoxicillin 875 mg-potassium 1 tab PO BID 7 days #14 tabs 11/09/22 clavulanate 125 mg tablet Previous Rx's Medication Instructions Recorded blood-glucose meter (OneTouch #1 ea 06/26/20 Ultra2 Meter) flash glucose scanning reader #1 ea 09/05/20 (FreeStyle Manish 14 Day Isabella) flash glucose sensor (FreeStyle #6 ea 09/05/20 Manish 14 Day Sensor kit) acetaminophen 500 mg tablet 500 mg PO Q6H PRN PRN pain #40 tabs 02/10/21 blood sugar diagnostic #200 ea 06/05/21 lancets 33 gauge (OneTouch Delica #200 ea 06/05/21 Plus Lancet) pen needle, diabetic 32 gauge x #200 ea 06/05/2106/30 (Novofine 32) buspirone 10 mg tablet 10 mg PO BID #180 tabs 10/26/21 simvastatin 10 mg tablet 10 mg PO DAILY #90 tab-caps 12/02/21 semaglutide 14 mg tablet 14 mg PO DAILY #90 tabs 12/09/21 sertraline 100 mg tablet 100 mg PO DAILY #90 tabs 02/09/22 insulin degludec 200 unit/mL (3 78 unit (0.39 mL) subcut DAILY #36 04/07/22 mL) subcutaneous pen (Tresiba mL FlexTouch U-200 insulin) ibuprofen 600 mg tablet 600 mg PO TID PRN pain #270 tabs 05/12/22 trazodone 100 mg tablet 100 mg PO HS #90 tabs 06/23/22 cyclobenzaprine 10 mg tablet 10 mg PO TID PRN back pain #90 tabs 07/28/22 hydrocodone 5 mg-acetaminophen 325 1 tab PO Q4H PRN pain #14 tabs 10/12/22 mg tablet metformin 1,000 mg tablet 1,000 mg PO BID #180 tabs 10/28/22 amoxicillin 875 mg-potassium 1 tab PO BID 7 days #14 tabs 11/09/22 clavulanate 125 mg tablet Allergies Allergy/AdvReac Type Severity Reaction Status Date / Time No Known Allergies Allergy Verified 10/22/22 10:05 General Stated Complaint: AnimalBite KAMRON: 4 PFSH All Active Problems (Updated 10/22/22 @ 10:33 by SHERYL Jimenez) Cat bite of left thumb (Acute) Trigger finger, right middle finger (Acute) s/p A1 lennie release, 10-12-22 Type 2 diabetes mellitus (Chronic) Hyperlipidemia (Chronic) Nonalcoholic steatohepatitis (MARQUEZ) (Chronic) Biopsy proven at [facility] [place] 2006 PCOS (polycystic ovarian syndrome) (Chronic) Generalized anxiety disorder (Chronic) Depressive disorder (Chronic) Gastroesophageal reflux disease (Chronic) Allergic rhinitis (Chronic) Insertional Achilles tendinopathy (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 Obesity (Chronic) 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: 10/12/2022 Medical History Treva's deformity of right heel Status post excision and debridement: 02/10/2021 Surgical History History of ankle surgery (04/18/09) Left ankle: excision of recurrent exostosis to left malar region 10/12/2013 and 04/18/2009 (arthrotomy and osteophyte excision) History of bilateral carpal tunnel release (11/01/06) History of repair of anterior cruciate ligament of right knee History of surgery on extremity (02/10/21) Right Achilles Insertion Debridement with Treva Resection and Reattachment of Achilles Tendon S/P arthroscopic knee surgery Bilateral S/P colonoscopy (03/09/07) Status post incision and drainage (01/16/14) Of suppurative tenosynovitis (infection) of the flexor tendon of the left index finger Family History Mother Hyperlipidemia Melanoma Depression Father Essential hypertension Hyperlipidemia Stroke Brother Asthma Hyperlipidemia Type 2 diabetes mellitus Daughter No problems noted. Maternal Grandfather Colon cancer Maternal Grandmother , at 94 Breast cancer in her 50s Paternal Grandfather , age 94 Alcohol abuse Paternal Grandmother , 56 from asthma attack Asthma Social History (Updated 09/16/22 @ 15:21 by Nguyen Stearns) Smoking/Tobacco Use Status: Never Smoking risk assessment performed?: Yes Alcohol Intake: current Alcohol Intake frequency: a few times a month Alcohol type: beer Drug use: Never Substance use type: does not use Caregiver/Support person: No Household members: spouse and children Housing: house Communication Needs: None Do you need help understanding health information?: Never 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 Pets and animals: Yes Pets and animals: cat(s) and dog(s) Sexually active: Yes Do you think of yourself as: straight/heterosexual Current gender identity: female What is your relationship status?: How often do you talk on the phone with friends or family?: once per week How often do you get together with friends or relatives?: once per week How often do you attend sikh or protestant services?: decline to answer Do you belong to any clubs or organized social groups?: no Panel score (0-1 are the most socially isolated patients): 1 What type of physical activity do you participate in: none Shae/Roman Catholic: None Special shae needs: No Seatbelt use: always Helmet use: No Drive intox or ride w/intox 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 Head: Normocephalic, atraumatic. Eye: Pupils equal, round reactive to light. Extraocular eye movements intact. No conjunctival injection. No scleral icterus. Ear, nose, mouth, throat: Grossly normal inspection. Normal voice, handling secretions normally. Neck: Trachea midline. Cardiovascular: Well-perfused distal extremities. Respiratory: Nonlabored respiration. Gastrointestinal: Nondistended abdomen. Musculoskeletal: Left thumb is mildly swollen diffusely. On the palmar aspect of the left thumb there is a small puncture wound overlying the IP joint. The dorsal surface of the left thumb has an approximately 2.5 cm superficial healing laceration. Patient has slightly limited range of motion in the left thumb on flexion and extension. Otherwise sensation and motor function intact in the left hand across the radial, median, and ulnar nerve distributions of the hand. Cap refill less than 2 seconds in the left fingertips. 2+ left radial pulse. Skin: Normal for age and race, grossly normal temperature and turgor. No acute rash. Neurologic: Alert and appropriate, no apparent acute deficits. Psychiatric: Mood and manner are appropriate. Grooming and personal hygiene are appropriate. Course Vital Signs Vital signs: Vital Signs Temperature 36.4 C 11/09/22 03:35 Pulse 86 11/09/22 03:35 Respiratory Rate 17 11/09/22 03:35 Blood Pressure 153/98 H 11/09/22 03:35 Pulse Oximetry 98 11/09/22 03:35 Temperature 36.4 C 11/09/22 03:35 Temperature Source Oral 11/09/22 03:35 Pulse 86 11/09/22 03:35 Respiratory Rate 17 11/09/22 03:35 Respiratory Effort Normal 11/09/22 03:38 Blood Pressure 153/98 H 11/09/22 03:35 Blood Pressure Position Sitting 11/09/22 03:35 Pulse Oximetry 98 11/09/22 03:35 Oxygen Delivery Method Room Air 11/09/22 03:35 Oxygen Flow Rate 0 11/09/22 03:35 Pain Level 8 11/09/22 03:35
--- NOTE | 2022-11-09 03:45 | DI.RAD_ITS ---
Exam(s) XR THUMB LT EXAM: XR THUMB LT EXAM DATE/TIME: CLINICAL HISTORY: Left thumb pain status post cat bite. TECHNIQUE: 2D digital imaging was performed of the left finger. Three views were obtained. PA/AP, oblique, and lateral views were obtained. COMPARISON: None. FINDINGS: BONES: No acute fracture is present. No bony destructive lesion is seen. JOINTS: No dislocation is present. SOFT TISSUE: Normal. No radiopaque foreign bodies. IMPRESSION: No evidence of acute fracture or dislocation. DATA REPOSITORY: RADIATION DOSE DELIVERED:
[2022-11-09] MEDS: Acetaminophen 500 MG TAB 1000 MG PO (03:53)
[2022-11-09] MEDS: Amoxicillin 875/Clav. 125 TAB PO (03:53)
--- NOTE | 2022-11-09 07:25 | DI.VRAD_ITS ---
PROCEDURE INFORMATION: Exam: XR Left Finger(s) Exam date and time: 11/09/2022 4:15 AM Age: 47 years old Clinical indication: Pain; Finger(s); Left; Additional info: Cat bite TECHNIQUE: Imaging protocol: Radiologic exam of the left fingers. Views: Minimum 2 views. COMPARISON: No relevant prior studies available. FINDINGS: Bones/joints: No acute fracture or malalignment. Joint spaces are maintained. Soft tissues: No discrete radiopaque foreign body. IMPRESSION: No radiographic evidence of acute osseous injury. No discrete radiopaque foreign body. Dictated and Authenticated by: Tao Diggs MD. Ordering:REINA Daniels MD
== END 2022-11-09 05:03 | disposition home or self-care (01) ==
PROVIDERS: Emergency Provider Emergency Medicine; PCP Nurse Practitioner Family
DX: S61.052A Open bite of left thumb without damage to nail, initial encounter (principal); W55.01XA Bitten by cat, initial encounter
CPT/HCPCS: 99284; 73140

== ENCOUNTER 2022-11-12 11:55 | Emergency (ER) | payer BC, SELFPAY ==
[2022-11-12 11:58] VITALS: BP 137/96; PULSE 89; RESP 16; TEMP 36.8; O2SAT 98
--- NOTE | 2022-11-12 12:56 | W.ED.GENAD ---
Discharge Plan Disposition Patient Disposition: Transfer-Acute Inpatient Care Specific Acute Inpt Facility: [facility] Condition: Stable Discharge Details Clinical Impression: Flexor tenosynovitis of thumb Primary Care Provider: Aria Wilson ED Provider: Philippe Marquis Home Meds and New Rx's Prescriptions: No Action (DME) FreeStyle Manish 14 Day Sensor Kit See Rx Instructions .ROUTE .MEDSUPPLY Qty: 6 4RF Rx Instructions: Continuous glucose monitor (DME) FreeStyle Manish 14 Day [place] Misc See Rx Instructions .ROUTE .MEDSUPPLY Qty: 1 4RF Rx Instructions: Continuous glucose monitor loratadine 10 mg capsule 10 mg PO DAILY PRN melatonin 10 mg capsule 10 mg PO HS PRN (DME) blood-glucose meter [OneTouch Ultra2 Meter] Mis See Rx Instructions .ROUTE .MEDSUPPLY Qty: 1 4RF Rx Instructions: Check blood sugar in the morning and 2 hours after biggest meal insulin degludec [Tresiba FlexTouch U-200] 200 unit/mL (3 mL) insulin pen 78 unit subcut DAILY Qty: 36 3RF omega-3 fatty acids-fish oil 1 EACH capsule 1 ea PO DAILY (DME) blood sugar diagnostic Strip See Rx Instructions .ROUTE .MEDSUPPLY Qty: 200 4RF Rx Instructions: Check blood sugar in the morning and 2 hours after biggest meal (DME) lancets [OneTouch Delica Plus Lancet] 33 gauge misc See Rx Instructions .ROUTE .MEDSUPPLY Qty: 200 4RF Rx Instructions: Check blood sugar in the morning and 2 hours after biggest meal (DME) pen needle, diabetic [Novofine 32] 32 gauge x 1/4 needle See Rx Instructions .ROUTE .MEDSUPPLY Qty: 200 4RF Rx Instructions: Use separate needle for insulin and victoza pens daily buspirone 10 mg tablet 10 mg PO BID Qty: 180 4RF simvastatin 10 mg tablet 10 mg PO DAILY Qty: 90 3RF semaglutide 14 mg tablet 14 mg PO DAILY Qty: 90 3RF Rx Instructions: Take 1 tablet daily sertraline 100 mg tablet 100 mg PO DAILY Qty: 90 3RF Rx Instructions: Take 1 tablet daily ibuprofen 600 mg tablet 600 mg PO TID PRN (Reason: pain) Qty: 270 3RF trazodone 100 mg tablet 100 mg PO HS Qty: 90 3RF cyclobenzaprine 10 mg tablet 10 mg PO TID PRN (Reason: back pain) Qty: 90 0RF metformin 1,000 mg tablet 1,000 mg PO BID Qty: 180 3RF Rx Instructions: Take 1 tablet (1000mg )twice a day amoxicillin-pot clavulanate 875-125 mg tablet 1 tab PO BID 7 Days Qty: 14 0RF acetaminophen 500 mg tablet 500 mg PO Q6H PRN PRN (Reason: pain) Qty: 40 3RF omeprazole 20 mg capsule,delayed release(DR/EC) 20 mg PO HS Discharge Data Discharge Date/Time-TO BE ENTERED AT DEPARTURE: 11/12/22 18:36 Medical Decision Making <Molly Holly DO - Last Filed: 11/15/22 17:09> Dr. Holly 47-year-old female with a history of diabetes, irritable bowel syndrome, obesity, PCOS, Milner, hyperlipidemia, depression and GERD presents after sent by [facility] for evaluation of a recent cat bite. Patient was seen here 3 days ago and had an x-ray of her left hand which was unremarkable and placed on Augmentin which she reports she is taking. She has not yet taken her Augmentin dose this morning. Patient appears nontoxic. Her left hand is mild to moderately edematous and erythematous. She has a 2 x 2 millimeter puncture wound to the base of her left thumb on the volar aspect overlying the IP joint. She does have a positive Nam's test. She does have pain extending from her left thumb along the base down the proximal aspect of the palm of her hand and back up along her left pinky finger. She has normal capillary refill and no evidence of crepitus or abscesses noted. Will obtain screening labs. Orthopedics paged and they are currently in the OR. They are recommending a repeat hand x-ray. [id number] --Dr. Chavez evaluated pt bedside --he is recommending vancomycin IV and an MRI of the hand. Discussed with MRI and they may be able to obtain this this afternoon. Plan would be for likely admission here for IV antibiotics and potential surgery however we have no beds available due to poor staffing. Dr. Chavez will call [facility] to see if possible to transfer as she may be more appropriate for hand surgeon and as she does not emergently need surgery at this time. 1600 --calls placed to both [facility] and [facility] orthopedics --potential for transfer is slim as they are near capacity. They will consult orthopedics and call back. Case discussed with Dr. Chavez -- he will come to reevaluate patient after she has had her vancomycin for reassessment. If still needing more appropriate transfer to a hand surgeon, and no beds available at [facility] or [facility], will transfer to another tertiary facility. If she is improving and no ability for transfer and there is bed availability here, will keep here for IV antibiotics. Case endorsed to Dr. Marquis to follow-up on MRI and with [facility] and [facility] if there is bed availability for transfer. I discussed with patient and she is okay with plan for transfer to another facility if there is no [facility] or [facility] capacity. Dr. Marquis 18: 02 patient has been accepted at [facility] for ED to ED transfer to expedite urgent evaluation by hand service to consider washout for tenosynovitis; we will continue with vancomycin and Unasyn. Patient stable resting comfortably, consenting for transfer. Accepting physician Dr. Lindsey. Medical Records Medical records reviewed: Yes I reviewed the patient's medical records. Imaging Data Radiologic Study: Radiologist's impression: XR HAND LT COMPLETE CLINICAL HISTORY: ? cat bite thumb, r/o foreign body.? TECHNIQUE:? 2D digital imaging was performed of the left hand.? Three views were obtained.? AP, lateral and oblique views were obtained. COMPARISON:? No exams were available for comparison FINDINGS: BONES: No acute fracture is present. No bony destructive lesion is seen. JOINTS: No dislocation present.? SOFT TISSUE: Normal. No radiopaque foreign bodies. IMPRESSION: No acute abnormality.? No radiopaque foreign body.? MR UPPER EXTREMITY LT WO CLINICAL HISTORY:? cat bite L thumb, r/o osteo/tenosynovitis TECHNIQUE:? Multiplanar multisequence MRI was performed without intravenous contrast. COMPARISON:? CR XR HAND LT COMPLETE from 11/12/2022 FINDINGS: BONES/JOINTS: No fracture or contusion pattern. No bone lesions identified. There is normal marrow signal. MUSCULOTENDINOUS STRUCTURES: The muscles show normal signal and size.? No muscular fatty atrophy. There is some fluid seen around the flexor tendon of the thumb.? There is mild edema in the soft tissues superficial to the flexor tendon of the thumb.? No focal fluid collection is identified to suggest an abscess. SOFT TISSUES: Mild edema in the soft tissues superficial to the flexor tendon of the thumb. OTHER FINDINGS: The ligaments appear grossly unremarkable. IMPRESSION: 1. No evidence of an occult fracture or osteomyelitis. 2. Small amount of fluid seen around the flexor tendon of the thumb with mild edema in the adjacent soft tissues.? This may represent a tenosynovitis.? Please correlate clinically. 3. No focal fluid collection is seen to suggest an abscess. Lab Data Lab results reviewed: Yes I reviewed the patient's lab results. <Philippe Marquis MD - Last Filed: 11/12/22 18:04> 47-year-old female with a history of diabetes, irritable bowel syndrome, obesity, PCOS, Milner, hyperlipidemia, depression and GERD presents after sent by [facility] for evaluation of a recent cat bite. Patient was seen here 3 days ago and had an x-ray of her left hand which was unremarkable and placed on Augmentin which she reports she is taking. She has not yet taken her Augmentin dose this morning. Patient appears nontoxic. Her left hand is mild to moderately edematous and erythematous. She has a 2 x 2 millimeter puncture wound to the base of her left thumb on the volar aspect overlying the IP joint. She does have a positive Nam's test. She does have pain extending from her left thumb along the base down the proximal aspect of the palm of her hand and back up along her left pinky finger. She has normal capillary refill and no evidence of crepitus or abscesses noted. Will obtain screening labs. Orthopedics paged and they are currently in the OR. They are recommending a repeat hand x-ray. [id number] --Dr. Chavez evaluated pt bedside --he is recommending vancomycin IV and an MRI of the hand. Discussed with MRI and they may be able to obtain this this afternoon. Plan would be for likely admission here for IV antibiotics and potential surgery however we have no beds available due to poor staffing. Dr. Chavez will call [facility] to see if possible to transfer as she may be more appropriate for hand surgeon and as she does not emergently need surgery at this time. 1600 --calls placed to both [facility] and [facility] orthopedics --potential for transfer is slim as they are near capacity. They will consult orthopedics and call back. Case discussed with Dr. Chavez -- he will come to reevaluate patient after she has had her vancomycin for reassessment. If still needing more appropriate transfer to a hand surgeon, and no beds available at [facility] or [facility], will transfer to another tertiary facility. If she is improving and no ability for transfer and there is bed availability here, will keep here for IV antibiotics. Case endorsed to Dr. Marquis to follow-up on MRI and with [facility] and [facility] if there is bed availability for transfer. I discussed with patient and she is okay with plan for transfer to another facility if there is no [facility] or [facility] capacity. 18: 02 patient has been accepted at [facility] for ED to ED transfer to expedite urgent evaluation by hand service to consider washout for tenosynovitis; we will continue with vancomycin and Unasyn. Patient stable resting comfortably, consenting for transfer. Accepting physician Dr. Lindsey HPI <Molly Holly DO - Last Filed: 11/15/22 17:09> General Mode of arrival: ambulatory. Date/Time Provider Initiated Documentation: 11/12/22 12:06. Limitations to Documentation: no limitations. Information obtained by: patient. HPI Narrative: Patient is a right handed 47-year-old female with a history of type 2 diabetes, obesity, PCOS, hyperlipidemia, MILNER, PCOS, anxiety and depression who presents for evaluation after sent by [facility] for evaluation of a cat bite to her left thumb. Patient was seen here 3 days ago several hours after she sustained a cat bite to her left thumb. Patient states she was attempting to give her cat a pill when he bit her with 1 puncture wound on the volar surface of her left thumb. Patient states she was able to palpate and express blood from the area immediately. Patient was seen here several hours after the cat bite and had a left hand x-ray which was unremarkable and she was sent home on Augmentin. Her tetanus is up-to-date 2018. She states she has not yet taken her Augmentin dose this morning. Related Data Home Medications Medication Instructions Recorded Confirmed omega-3 fatty acids-fish oil 360 1 ea PO DAILY 01/06/16 11/12/22 mg-1,200 mg capsule loratadine 10 mg capsule 10 mg PO DAILY PRN 04/27/19 11/12/22 melatonin 10 mg capsule 10 mg PO HS PRN 04/27/19 11/12/22 blood-glucose meter (OneTouch #1 ea 06/26/20 11/12/22 Ultra2 Meter) flash glucose scanning reader #1 ea 09/05/20 11/12/22 (FreeStyle Manish 14 Day [place]) flash glucose sensor (FreeStyle #6 ea 09/05/20 11/12/22 Manish 14 Day Sensor kit) acetaminophen 500 mg tablet 500 mg PO Q6H PRN PRN pain #40 tabs 02/10/21 11/12/22 blood sugar diagnostic #200 ea 06/05/21 11/12/22 lancets 33 gauge (OneTouch Delica #200 ea 06/05/21 11/12/22 Plus Lancet) pen needle, diabetic 32 gauge x #200 ea 06/05/21 11/12/22 1/ (Novofine 32) buspirone 10 mg tablet 10 mg PO BID #180 tabs 10/26/21 11/12/22 simvastatin 10 mg tablet 10 mg PO DAILY #90 tab-caps 12/02/21 11/12/22 semaglutide 14 mg tablet 14 mg PO DAILY #90 tabs 12/09/21 11/12/22 sertraline 100 mg tablet 100 mg PO DAILY #90 tabs 02/09/22 11/12/22 insulin degludec 200 unit/mL (3 78 unit (0.39 mL) subcut DAILY #36 04/07/22 11/12/22 mL) subcutaneous pen (Tresiba mL FlexTouch U-200 insulin) ibuprofen 600 mg tablet 600 mg PO TID PRN pain #270 tabs 05/12/22 11/12/22 trazodone 100 mg tablet 100 mg PO HS #90 tabs 06/23/22 11/12/22 cyclobenzaprine 10 mg tablet 10 mg PO TID PRN back pain #90 tabs 07/28/22 11/12/22 omeprazole 20 mg capsule,delayed 20 mg PO HS 10/11/22 11/12/22 release metformin 1,000 mg tablet 1,000 mg PO BID #180 tabs 10/28/22 11/12/22 amoxicillin 875 mg-potassium 1 tab PO BID 7 days #14 tabs 11/09/22 11/12/22 clavulanate 125 mg tablet Previous Rx's Medication Instructions Recorded blood-glucose meter (OneTouch #1 ea 06/26/20 Ultra2 Meter) flash glucose scanning reader #1 ea 09/05/20 (FreeStyle Manish 14 Day [place]) flash glucose sensor (FreeStyle #6 ea 09/05/20 Manish 14 Day Sensor kit) acetaminophen 500 mg tablet 500 mg PO Q6H PRN PRN pain #40 tabs 02/10/21 blood sugar diagnostic #200 ea 06/05/21 lancets 33 gauge (OneTouch Delica #200 ea 06/05/21 Plus Lancet) pen needle, diabetic 32 gauge x #200 ea 06/05/2106/30 (Novofine 32) buspirone 10 mg tablet 10 mg PO BID #180 tabs 10/26/21 simvastatin 10 mg tablet 10 mg PO DAILY #90 tab-caps 12/02/21 semaglutide 14 mg tablet 14 mg PO DAILY #90 tabs 12/09/21 sertraline 100 mg tablet 100 mg PO DAILY #90 tabs 02/09/22 insulin degludec 200 unit/mL (3 78 unit (0.39 mL) subcut DAILY #36 04/07/22 mL) subcutaneous pen (Tresiba mL FlexTouch U-200 insulin) ibuprofen 600 mg tablet 600 mg PO TID PRN pain #270 tabs 05/12/22 trazodone 100 mg tablet 100 mg PO HS #90 tabs 06/23/22 cyclobenzaprine 10 mg tablet 10 mg PO TID PRN back pain #90 tabs 07/28/22 metformin 1,000 mg tablet 1,000 mg PO BID #180 tabs 10/28/22 amoxicillin 875 mg-potassium 1 tab PO BID 7 days #14 tabs 11/09/22 clavulanate 125 mg tablet Allergies Allergy/AdvReac Type Severity Reaction Status Date / Time No Known Allergies Allergy Verified 11/12/22 10:48 General Stated Complaint: Recheck KAMRON: 4 Review of Systems <Molly Holly DO - Last Filed: 11/15/22 17:09> All systems reviewed & are unremarkable except as noted in HPI and below Constitutional Constitutional: Reports as per HPI, Denies chills and Denies fever(s) Eyes Eyes: Denies blurry vision ENT Ears, Nose, Mouth, and Throat: Denies dizziness, Denies sore throat and Denies throat swelling Cardiovascular Cardiovascular: Denies chest pain and Denies dyspnea Respiratory Respiratory: Denies cough and Denies dyspnea Gastrointestinal Gastrointestinal: Denies abdominal pain, Denies diarrhea and Denies vomiting Genitourinary Genitourinary: Denies hematuria and Denies dysuria Musculoskeletal Musculoskeletal: Denies back pain and Denies numbness Integumentary/Breasts Skin/Breast: Denies lesions and Denies rash Neurologic Neurologic: Denies dizziness, Denies localized weakness and Denies numbness Allergic/Immunologic Allergic/Immunologic: Denies throat swelling PFSH <Molly Holly, DO - Last Filed: 11/15/22 17:09> All Active Problems (Updated 10/22/22 @ 10:33 by SHERYL Jimenez) Flexor tenosynovitis of thumb (Acute) Animal bite of left hand with infection (Acute) Cat bite of left thumb (Acute) Trigger finger, right middle finger (Acute) s/p A1 lennie release, 10-12-22 Type 2 diabetes mellitus (Chronic) Hyperlipidemia (Chronic) Nonalcoholic steatohepatitis (MILNER) (Chronic) [place] [facility] [place] PCOS (polycystic ovarian syndrome) (Chronic) Generalized anxiety disorder (Chronic) Depressive disorder (Chronic) Gastroesophageal reflux disease (Chronic) Allergic rhinitis (Chronic) Insertional Achilles tendinopathy (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 Obesity (Chronic) 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: 10/12/2022 Medical History Treva's deformity of right heel Status post excision and debridement: 02/10/2021 Surgical History History of ankle surgery (04/18/09) Left ankle: excision of recurrent exostosis to left malar region 10/12/2013 and 04/18/2009 (arthrotomy and osteophyte excision) History of bilateral carpal tunnel release (11/01/06) History of repair of anterior cruciate ligament of right knee History of surgery on extremity (02/10/21) Right Achilles Insertion Debridement with Treva Resection and Reattachment of Achilles Tendon S/P arthroscopic knee surgery Bilateral S/P colonoscopy (03/09/07) Status post incision and drainage (01/16/14) Of suppurative tenosynovitis (infection) of the flexor tendon of the left index finger Family History Mother Hyperlipidemia Melanoma Depression Father Essential hypertension Hyperlipidemia Stroke Brother Asthma Hyperlipidemia Type 2 diabetes mellitus Daughter No problems noted. Maternal Grandfather Colon cancer Maternal Grandmother , at 94 Breast cancer in her 50s Paternal Grandfather , age 94 Alcohol abuse Paternal Grandmother , 56 from asthma attack Asthma Social History (Updated 09/16/22 @ 15:21 by Nguyen Stearns) Smoking/Tobacco Use Status: Never Smoking risk assessment performed?: Yes Alcohol Intake: current Alcohol Intake frequency: a few times a month Alcohol type: beer Drug use: Never Substance use type: does not use Caregiver/Support person: No Household members: spouse and children Housing: house Communication Needs: None Do you need help understanding health information?: Never 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 Pets and animals: Yes Pets and animals: cat(s) and dog(s) Sexually active: Yes Do you think of yourself as: straight/heterosexual Current gender identity: female What is your relationship status?: How often do you talk on the phone with friends or family?: once per week How often do you get together with friends or relatives?: once per week How often do you attend scientology or cheondoism services?: decline to answer Do you belong to any clubs or organized social groups?: no Panel score (0-1 are the most socially isolated patients): 1 What type of physical activity do you participate in: none Shae/Lutheran: None Special shae needs: No Seatbelt use: always Helmet use: No Drive intox or ride w/intox local company tanker driver: No Do you feel safe at home: Yes Do you feel safe in your relationship?: Yes History History 3 Para Hx # Term Pregnancies Multiple births Hx # Pregnancies Ectopic pregnancies AB induced Hx Number of Living Children 1 AB spontaneous 2 Exam <Molly Holly DO - Last Filed: 11/15/22 17:09> Const General: cooperative and no acute distress Orientation: alert, awake and oriented x3 HENMT Head: normal to inspection Mouth: oral mucosae normal Eyes General: appearance normal, both eyes and all related structures Neck Neck: normal visual inspection Resp Effort & Inspection: normal respiratory effort and able to speak in complete sentences Cardio Rate: regular rate Skin General skin exam: no rashes or lesions noted Neuro General: patient alert, patient awake and patient oriented x3 Motor: muscle tone normal throughout Extrem Hand/finger images: 1. There is a 2 x 2 millimeter puncture wound noted to the volar aspect of the base of the distal phalanx on the left thumb overlying the IP joint. No active bleeding or discharge noted. No evidence of fluctuance. Other: Left hand: There is mild to moderate edema and erythema noted of the entire left hand. There is no red streaking noted from the left thumb puncture wound. Positive Nam's test. Psych Appearance: grossly normal Affect: normal affect Course <Molly Holly DO - Last Filed: 11/15/22 17:09> Vital Signs Vital signs: Vital Signs Temperature 98.2 F 11/12/22 11:58 Pulse 89 11/12/22 11:58 Respiratory Rate 16 11/12/22 11:58 Blood Pressure 137/96 H 11/12/22 11:58 Pulse Oximetry 98 11/12/22 11:58 Temperature 98.2 F 11/12/22 11:58 Temperature Source Oral 11/12/22 11:58 Pulse 89 11/12/22 11:58 Respiratory Rate 16 11/12/22 11:58 Blood Pressure 137/96 H 11/12/22 11:58 Blood Pressure Position Sitting 11/12/22 11:58 Pulse Oximetry 98 11/12/22 11:58 Oxygen Delivery Method Room Air 11/12/22 11:58 Oxygen Flow Rate 0 11/12/22 11:58 Pain Level 6 11/12/22 11:58 Sign Out <Molly Holly DO - Last Filed: 11/15/22 17:09> Sign Out Data: Sign Out Comment: Cat bite to left thumb 3 days ago. Swelling and pain worsening while on Augmentin. Concern for possible tenosynovitis. Follow-up on MRI hand. Dr. Chavez has been consulted and if symptoms are improving after IV vancomycin and there is bed availability here, may consider admission here. If we have no bed availability here and symptoms not improving, transfer to a facility where there is a hand surgeon. [facility] and [facility] orthopedics have been consulted but they have limited capacity. Follow-up with [facility] and [facility] if able to accept transfer. Last updated by Molly Holly DO at 11/12/22 16:07
[2022-11-12 13:44] LABS: Abs Immature Grans 0.01 10^3/uL (0.0-0.06); Absolute Basophil Count 0.03 10^3/uL (0.0-0.2); Absolute Eosinophil Count 0.25 10^3/uL (0.0-0.7); Absolute Lymphocyte Count 1.53 10^3/uL (1.2-3.4); Absolute Monocyte Count 0.47 10^3/uL (0.1-0.8); Absolute Neutrophil Count 3.13 10^3/uL (1.2-6.7); Basophils % 0.6; Eosinophils % 4.6; HCT 40.7 % (36.0-46.0); HGB 13.9 g/dL (11.2-15.7); Immature Grans % 0.2; Lymphocytes % 28.2; MCH 28.4 pg (27.0-33.0); MCHC 34.2 % (32.0-36.0); MCV 83 fL (80-95); MPV 10.9 fL (8.0-11.0); Monocytes % 8.7; Neutrophils % 57.7; Platelet Count 218 10^3/uL (130-400); RDW 12.8 % (11.7-14.6); RDW-SD 38.5 fL; WBC 5.42 10^3/uL (4.4-10.8)
--- NOTE | 2022-11-12 13:45 | DI.RAD_ITS ---
Exam(s) XR HAND LT COMPLETE EXAM: XR HAND LT COMPLETE CLINICAL HISTORY: cat bite thumb, r/o foreign body. TECHNIQUE: 2D digital imaging was performed of the left hand. Three views were obtained. AP, later al and oblique views were obtained. COMPARISON: No exams were available for comparison FINDINGS: BONES: No acute fracture is present. No bony destructive lesion is seen. JOINTS: No dislocation present. SOFT TISSUE: Normal. No radiopaque foreign bodies. IMPRESSION: No acute abnormality. No radiopaque foreign body. DATA REPOSITORY: RADIATION DOSE DELIVERED:
[2022-11-12 14:00] LABS: ALT 29 U/L (14-59); AST 25 U/L (15-37); Alkaline Phosphatase 72 U/L (46-116); Anion Gap 7.6 mmol/L (3-11); BUN 9 mg/dL (7-18); Bilirubin, Total 0.4 mg/dL (0.2-1.0); C-Reactive Protein 1.91 mg/dL (0.0-0.3); CO2 29.4 mmol/L (21.0-32.0); CREATININE 0.8 mg/dL (0.55-1.02); Calcium 9.6 mg/dL (8.5-10.1); Chloride 102 mmol/L (98-107); Estimated GFR 90.27 (mL/min/1.73m2); Glucose 146 mg/dL (74-106); Potassium 3.8 mmol/L (3.5-5.1); Sodium 139 mmol/L (136-145); Total Protein 8.7 g/dL (6.4-8.2)
[2022-11-12 14:03] LABS: ESR 25 mm/hr (0-20)
[2022-11-12] MEDS: Acetaminophen 500 MG TAB 1000 MG PO (14:46)
[2022-11-12] MEDS: oxyCODONE 5 MG TAB PO (14:47)
--- NOTE | 2022-11-12 14:50 | DI.MRI_ITS ---
Exam(s) MR UPPER EXTREMITY LT WO EXAM: MR UPPER EXTREMITY LT WO CLINICAL HISTORY: cat bite L thumb, r/o osteo/tenosynovitis TECHNIQUE: Multiplanar multisequence MRI was performed without intravenous contrast. COMPARISON: CR XR HAND LT COMPLETE from 11/12/2022 FINDINGS: BONES/JOINTS: No fracture or contusion pattern. No bone lesions identified. There is normal marrow si gnal. MUSCULOTENDINOUS STRUCTURES: The muscles show normal signal and size. No muscular fatty atrophy. The re is some fluid seen around the flexor tendon of the thumb. There is mild edema in the soft tissues superficial to the flexor tendon of the thumb. No focal fluid collection is identified to suggest a n abscess. SOFT TISSUES: Mild edema in the soft tissues superficial to the flexor tendon of the thumb. OTHER FINDINGS: The ligaments appear grossly unremarkable. IMPRESSION: 1. No evidence of an occult fracture or osteomyelitis. 2. Small amount of fluid seen around the flexor tendon of the thumb with mild edema in the adjacent s oft tissues. This may represent a tenosynovitis. Please correlate clinically. 3. No focal fluid collection is seen to suggest an abscess. DATA REPOSITORY:
--- NOTE | 2022-11-12 14:54 | W.ORTHOCONSU ---
Date of service: 11/12/22 Time of Service: 16:38 History of Present Illness Narrative: Left hand infection after cat bite 3 days ago Consult Reason Left hand infection required surgery Assessment and Plan Assessment and plan (1) Animal bite of left hand with infection: Status: Acute Assessment and plan: 47-year-old female 3 days status post left thumb cat bite with worsening and spreading infection Patient describes deep cat bite puncture wound to the distal left thumb 3 days ago. Presented to emergency department and started on Augmentin, which she has been using appropriately. Describes significant pain that has been worsening since the initial evening. There was some swelling discomfort about the thumb, but what it is alarming to her is the intensity of swelling and pain to her small finger. Her palm and little finger became symptomatic yesterday. She is healthy, non-smoker, has well-controlled type 2 diabetes. History of left index finger flexor tenosynovitis status post successful open I&D and carpal tunnel release in the distant past. Exam shows somewhat uncomfortable otherwise healthy appearing adult. Moderate induration and swelling and edema through the volar thumb thenar space, palm, hypothenar space, and into the small finger. Relatively spares the index, long, and ring fingers. Somewhat resting flexed thumb and small fingers. Early fusiform swelling. Able to flex and extend moderately, but with moderate discomfort. Significant discomfort to pressure and palpation over the flexor aspects of the thumb, small finger, and thenar hypothenar and carpal tunnel spaces. Healing puncture wound distal aspect ulnar thumb. No skin breakdown, no purulence, no proximal streaking. Sensory intact throughout without paresthesias, no numbness, no tingling. Demonstrates easy range of motion about the wrist without difficulty. Discussed thoroughly with patient and ED physician. Concerned about thumb and small finger flexor tenosynovitis and deep space infection concomitant deep space infection thenar, carpal tunnel, and hyperthenar- horseshoe abscess. Recommend IV antibiotics, will attempt to arrange MRI, and coordinate need for inpatient hospital stay for monitoring and antibiotics. Low threshold to consider referral to tertiary care facility for hand specialist and infectious disease. Somewhat reassuring that WBC is normal, patient afebrile and hemodynamically stable, and ESR and CRP are only mildly elevated. In the meanwhile, pending surgery or transfer, recommend IV vancomycin. NPO. Serial clinical reevaluation's. Discussed with both [facility] and [facility]. Both at capacity. Pending potential availability. Patient reassessed. No worse. Receiving initial IV antibiotics now. Borderline case. Could be potentially treated medically. She will remain in the emergency department pending placement. [facility] All Active Problems (Updated 10/22/22 @ 10:33 by SHERYL Jimenez) Animal bite of left hand with infection (Acute) Cat bite of left thumb (Acute) Trigger finger, right middle finger (Acute) s/p A1 lennie release, 10-12-22 Type 2 diabetes mellitus (Chronic) Hyperlipidemia (Chronic) Nonalcoholic steatohepatitis (MARQUEZ) (Chronic) Biopsy proven at [facility] [place] in 2006 PCOS (polycystic ovarian syndrome) (Chronic) Generalized anxiety disorder (Chronic) Depressive disorder (Chronic) Gastroesophageal reflux disease (Chronic) Allergic rhinitis (Chronic) Insertional Achilles tendinopathy (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 Obesity (Chronic) 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: 10/12/2022 Medical History Treva's deformity of right heel Status post excision and debridement: 02/10/2021 Surgical History History of ankle surgery (04/18/09) Left ankle: excision of recurrent exostosis to left malar region 10/12/2013 and 04/18/2009 (arthrotomy and osteophyte excision) History of bilateral carpal tunnel release (11/01/06) History of repair of anterior cruciate ligament of right knee History of surgery on extremity (02/10/21) Right Achilles Insertion Debridement with Treva Resection and Reattachment of Achilles Tendon S/P arthroscopic knee surgery Bilateral S/P colonoscopy (03/09/07) Status post incision and drainage (01/16/14) Of suppurative tenosynovitis (infection) of the flexor tendon of the left index finger Family History Mother Hyperlipidemia Melanoma Depression Father Essential hypertension Hyperlipidemia Stroke Brother Asthma Hyperlipidemia Type 2 diabetes mellitus Daughter No problems noted. Maternal Grandfather Colon cancer Maternal Grandmother , at 94 Breast cancer in her 50s Paternal Grandfather , age 94 Alcohol abuse Paternal Grandmother , 56 from asthma attack Asthma Social History (Updated 09/16/22 @ 15:21 by Nguyen Stearns) Smoking/Tobacco Use Status: Never Smoking risk assessment performed?: Yes Alcohol Intake: current Alcohol Intake frequency: a few times a month Alcohol type: beer Drug use: Never Substance use type: does not use Caregiver/Support person: No Household members: spouse and children Housing: house Communication Needs: None Do you need help understanding health information?: Never 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 Pets and animals: Yes Pets and animals: cat(s) and dog(s) Sexually active: Yes Do you think of yourself as: straight/heterosexual Current gender identity: female What is your relationship status?: How often do you talk on the phone with friends or family?: once per week How often do you get together with friends or relatives?: once per week How often do you attend congregational or jain services?: decline to answer Do you belong to any clubs or organized social groups?: no Panel score (0-1 are the most socially isolated patients): 1 What type of physical activity do you participate in: none Shae/Jewish: None Special shae needs: No Seatbelt use: always Helmet use: No Drive intox or ride w/intox driver examiner: No Do you feel safe at home: Yes Do you feel safe in your relationship?: Yes History History 3 Para Hx # Term Pregnancies Multiple births Hx # Pregnancies Ectopic pregnancies AB induced Hx Number of Living Children 1 AB spontaneous 2 Results Last Vital Signs Temp 98.2 F 11/12/22 11:58 Pulse 89 11/12/22 11:58 Resp 16 11/12/22 11:58 BP 137/96 H 11/12/22 11:58 Pulse Ox 98 11/12/22 11:58 Labs 11/12/22 13:39 11/12/22 13:39 Labs: Laboratory Results - last 24 hr 11/12/22 11/12/22 11/12/22 13:39 13:39 13:39 WBC 5.42 RBC 4.90 Hgb 13.9 Hct 40.7 MCV 83 MCH 28.4 MCHC 34.2 RDW 12.8 Plt Count 218 MPV 10.9 Immature Gran % 0.2 Neutrophils % 57.7 Lymphocytes % 28.2 Monocytes % 8.7 Eosinophils % 4.6 Basophils % 0.6 Nucleated RBC % 0.0 Absolute Neutrophils 3.13 Absolute Lymphocytes 1.53 Absolute Monocytes 0.47 Absolute Eosinophils 0.25 Absolute Basophils 0.03 ESR 25 H Sodium 139 Potassium 3.8 Chloride 102 Carbon Dioxide 29.4 Anion Gap 7.6 BUN 9 Creatinine 0.8 Est GFR (CKD-EPI 2020) 90.27 Glucose 146 H Calcium 9.6 Total Bilirubin 0.4 AST 25 ALT 29 Alkaline Phosphatase 72 C-Reactive Protein 1.91 H Total Protein 8.7 H Albumin 4.0
[2022-11-12] MEDS: VANCOMYCIN/WATER (PEG) 2 GM/400 ML BAG IVPB (15:25)
[2022-11-12 17:00] VITALS: BP 126/77; PULSE 78; RESP 18; TEMP 36.6; O2SAT 95
--- NOTE | 2022-11-12 17:07 | NUR.NOTE ---
Addendum entered by Kell Odonnell RN 11/12/22 17:38: Replace first sentence: Pt returned to room from MRI. Original Note: Nursing Note: Pt returned to room from CT Scan. Pt awake, sitting up in bed, supporting left hand; left hand erythemic, swollen, painful, CMS intact. Vancomycin infusion restarted. Pt remains afebrile, VSS, respirations non-labored. Dr Pretty at pt's bedside reviewd and discussed plan of care with pt, pt in agreement and awaiting disposition.
[2022-11-12] MEDS: Ketorolac 15 MG/ML VIAL IVP (17:26)
--- NOTE | 2022-11-12 17:33 | NUR.NOTE ---
Nursing Note: Pt left arm/hand elevated on pillows, received warm blankets, pt watching movie on IPAD. Pt aware NPO at this time. Pt reports notified family with updates, reports family on their way to visit. Plan of care reviewed with pt, aware additional IV antibiotics ordered to follow Vancomycin.
[2022-11-12] MEDS: AMPICILLIN/SULBACTAM 3 GM in Normal Saline 100 ML IVPB (18:10)
[2022-11-12 18:20] VITALS: BP 133/83; PULSE 80; RESP 16; TEMP 36.5; O2SAT 97
--- NOTE | 2022-11-12 18:50 | NUR.NOTE ---
Nursing Note: Pt transported by [facility]. This keno writer received [facility] Transfer Center # [phone], spoke with Mia, instructed to call [facility] ED [phone]. This keno writer spoke with ED Charge Maricruz CLAY, aware pt left around 1840 and en route; pt's history, VS, imaging and medications received reviewed; aware pt 's family at bedside visiting and present at transfer.
== END 2022-11-12 18:36 | disposition short-term general hospital (02) ==
PROVIDERS: Physician Assistant; Emergency Provider Emergency Medicine; PCP Nurse Practitioner Family
DX: L08.9 Local infection of the skin and subcutaneous tissue, unspecified; S61.052A Open bite of left thumb without damage to nail, initial encounter; M65.842 Other synovitis and tenosynovitis, left hand; E11.9 Type 2 diabetes mellitus without complications; W55.01XA Bitten by cat, initial encounter
CPT/HCPCS: 36415; 80053; 85652; 96365; 96366; 96367; 96375; 99285; 73130; 73218; 85025; 86140; J0295; J1885

== ENCOUNTER → 2023-02-22 01:35 | Outpatient (CLI) | payer BC, SELFPAY ==
--- NOTE | 2023-02-22 07:00 | DI.MAMMO_ITS ---
Exam(s) MAMMO SCREENING EXAM: MAMMO SCREENING CLINICAL HISTORY: screening, Z12.39 TECHNIQUE: Bilateral full field digital CC and MLO mammographic images were obtained with 3D tomosyn thesis and utilizing computer aided detection (CAD). COMPARISON: Available for comparison. FINDINGS: Masses/Architectural Distortion: None seen. Microcalcifications: No suspicious pleomorphic-type are seen. Skin Thickening/Nipple Retraction: None. IMPRESSION: 1. No significant interval change with no specific features of malignancy noted. 2. Unless there is more urgent need, screening mammography is recommended, as per [employer] guidelines. BI-RADS Category 1 - Negative Breast Density - Category B - Scattered areas of fibroglandular density Breast density category C or D implies that the patient has dense breast tissue. Dense breast tissue is very common and is not abnormal but dense breast tissue can make it harder to find cancer on a ma mmogram. Also, dense breast tissue may increase their breast cancer risk. This information about the result of the mammogram report was provided to the patient to raise their awareness. Use this report when you speak with the patient about their risks for breast cancer, which includes their family hist ory. At that time, you may recommend for more screening tests (Ultrasound or MRI) as they might be us eful based on their risk. A negative radiographic report should not delay biopsy if a dominant or clinically suspicious mass is present. Up to ten percent of cancers are not identified on mammography. A negative report may reinforce clinical impression. Adenosis and dense breasts may obscure an underlying neoplasm. False positive reports average 6 to 10%. Patient will receive a letter notifying them of these results.
== END ==
PROVIDERS: PCP Nurse Practitioner Family; Visit Provider Nurse Practitioner Family
DX: Z12.31 Encounter for screening mammogram for malignant neoplasm of breast (principal)
CPT/HCPCS: 77063; 77067

== ENCOUNTER 2024-01-27 16:49 | Emergency (ER) | payer BC, SELFPAY ==
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
[2024-01-27 16:59] VITALS: BP 119/94; PULSE 88; RESP 18; TEMP 36.6; O2SAT 97
[2024-01-27 17:07] VITALS: BP 119/94; PULSE 88; RESP 18; TEMP 36.6; O2SAT 97
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
[2024-01-27 18:02] LABS: Lactate 0.8 mmol/L (0.6-1.4)
[2024-01-27 18:04] LABS: Abs Immature Grans 0.01 10^3/uL (0.0-0.06); Absolute Basophil Count 0.04 10^3/uL (0.0-0.2); Absolute Eosinophil Count 0.15 10^3/uL (0.0-0.7); Absolute Lymphocyte Count 1.77 10^3/uL (1.2-3.4); Absolute Neutrophil Count 4.35 10^3/uL (1.2-6.7); Basophils % 0.6 %; Eosinophils % 2.2 %; HCT 39.6 % (36.0-46.0); HGB 13.4 g/dL (11.2-15.7); Immature Grans % 0.1 %; MCH 28.5 pg (27.0-33.0); MCHC 33.8 % (32.0-36.0); MCV 84 fL (80-95); MPV 11.1 fL (8.0-11.0); Monocytes % 7.3 %; Neutrophils % 63.8 %; Platelet Count 164 10^3/uL (130-400); RBC 4.71 10^6/uL (3.93-5.22); RDW 12.9 % (11.7-14.6); RDW-SD 39.2 fL; WBC 6.82 10^3/uL (4.4-10.8)
--- NOTE | 2024-01-27 18:05 | W.ED.GENAD ---
Discharge Plan Disposition Patient Disposition: Home Condition: Good Discharge Details Clinical Impression: Electric shock Primary Care Provider: Aria Wilson ED Provider: Karol Laboy Home Meds and New Rx's Prescriptions: Continued loratadine 10 mg capsule 10 mg PO DAILY PRN melatonin 10 mg capsule 10 mg PO HS PRN (DME) blood-glucose meter [OneTouch Ultra2 Meter] Misc See Rx Instructions .ROUTE .MEDSUPPLY Qty: 1 4RF Rx Instructions: Check blood sugar in the morning and 2 hours after biggest meal omega-3 fatty acids-fish oil 1 EACH capsule 1 ea PO DAILY (DME) blood sugar diagnostic Strip See Rx Instructions .ROUTE .MEDSUPPLY Qty: 200 4RF Rx Instructions: Check blood sugar in the morning and 2 hours after biggest meal (DME) lancets [OneTouch Delica Plus Lancet] 33 gauge misc See Rx Instructions .ROUTE .MEDSUPPLY Qty: 200 4RF Rx Instructions: Check blood sugar in the morning and 2 hours after biggest meal (DME) pen needle, diabetic [Novofine 32] 32 gauge x 1/4 needle See Rx Instructions .ROUTE .MEDSUPPLY Qty: 200 4RF Rx Instructions: Use separate needle for insulin and victoza pens daily sertraline 100 mg tablet 100 mg PO DAILY Qty: 90 3RF Rx Instructions: Take 1 tablet daily insulin degludec [Tresiba FlexTouch U-200] 200 unit/mL (3 mL) insulin pen 78 unit subcut DAILY Qty: 36 3RF trazodone 100 mg tablet 100 mg PO HS Qty: 90 3RF ibuprofen 600 mg tablet 600 mg PO TID PRN (Reason: pain) Qty: 270 3RF omeprazole 20 mg capsule,delayed release(DR/EC) 20 mg PO DAILY Qty: 90 3RF buspirone 10 mg tablet 10 mg PO BID Qty: 180 3RF simvastatin 10 mg tablet 10 mg PO DAILY Qty: 90 3RF metformin 1,000 mg tablet 1,000 mg PO BID Qty: 180 3RF cyclobenzaprine 10 mg tablet 10 mg PO TID PRN (Reason: back pain) Qty: 90 1RF semaglutide 14 mg tablet 14 mg PO DAILY Qty: 90 3RF Rx Instructions: Take 1 tablet daily acetaminophen 500 mg tablet 500 mg PO Q6H PRN PRN (Reason: pain) Qty: 40 3RF Discharge Instructions Instructions: Electrical Shock Additional Instructions: Tylenol and ibuprofen over the counter for pain; follow the directions on the bottle. Wear the wrist splint until you are seen by your PCP. It is possible you have an undetectable fracture in your wrist. Call your PCP on Tuesday to schedule an appointment within the following three days to follow up on your visit today. Return to the emergency department for new or worsening symptoms. Referrals: Aria Wilson NP [Primary Care Provider] - [facility] General Mode of arrival: ambulatory. Date/Time Provider Initiated Documentation: 01/27/24 17:10. Limitations to Documentation: no limitations. Information obtained by: patient. HPI Narrative: 49yo F presenting with left arm pain after electric shock yesterday. 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 After the shock released she fell off the counter landing on her left arm. Did not strike her head or lose consciousness. Since then left arm pain, worse with any movement. Tried ibuprofen this morning without much improvement. Fingertips feel slightly numb, otherwise no numbness or tingling. No chest pain or shortness of breath and any point. No LOC. She is otherwise in her usual state of health. Related Data Home Medications ?Medication ?Instructions ?Recorded ?Confirmed omega-3 fatty acids-fish oil 360 1 ea PO DAILY 01/06/16 01/27/24 mg-1,200 mg capsule loratadine 10 mg capsule 10 mg PO DAILY PRN 04/27/19 01/27/24 melatonin 10 mg capsule 10 mg PO HS PRN 04/27/19 01/27/24 blood-glucose meter (OneTouch #1 ea 06/26/20 03/17/23 Ultra2 Meter) acetaminophen 500 mg tablet 500 mg PO Q6H PRN PRN pain #40 tabs 02/10/21 01/27/24 blood sugar diagnostic #200 ea 06/05/21 03/17/23 lancets 33 gauge (OneTouch Delica #200 ea 06/05/21 03/17/23 Plus Lancet) pen needle, diabetic 32 gauge x #200 ea 06/05/21 03/17/23 1/4 (Novofine 32) sertraline 100 mg tablet 100 mg PO DAILY #90 tabs 12/07/22 01/27/24 insulin degludec 200 unit/mL (3 78 unit (0.39 mL) subcut DAILY #36 04/20/23 01/27/24 mL) subcutaneous pen (Tresiba mL FlexTouch U-200 insulin) ibuprofen 600 mg tablet 600 mg PO TID PRN pain #270 tabs 06/06/23 01/27/24 trazodone 100 mg tablet 100 mg PO HS #90 tabs 06/06/23 01/27/24 omeprazole 20 mg capsule,delayed 20 mg PO DAILY #90 caps 11/02/23 01/27/24 release buspirone 10 mg tablet 10 mg PO BID #180 tabs 11/23/23 01/27/24 metformin 1,000 mg tablet 1,000 mg PO BID #180 tabs 11/23/23 01/27/24 simvastatin 10 mg tablet 10 mg PO DAILY #90 tabs 11/23/23 01/27/24 cyclobenzaprine 10 mg tablet 10 mg PO TID PRN back pain #90 tabs 12/20/23 01/27/24 semaglutide 14 mg tablet 14 mg PO DAILY #90 tabs 12/22/23 01/27/24 Previous Rx's ?Medication ?Instructions ?Recorded blood-glucose meter (OuterBay TechnologiesTouch #1 ea 06/26/20 Ultra2 Meter) acetaminophen 500 mg tablet 500 mg PO Q6H PRN PRN pain #40 tabs 02/10/21 blood sugar diagnostic #200 ea 06/05/21 lancets 33 gauge (OneTouch Delica #200 ea 06/05/21 Plus Lancet) pen needle, diabetic 32 gauge x #200 ea 06/05/2106/30 (Novofine 32) sertraline 100 mg tablet 100 mg PO DAILY #90 tabs 12/07/22 insulin degludec 200 unit/mL (3 78 unit (0.39 mL) subcut DAILY #36 04/20/23 mL) subcutaneous pen (Tresiba mL FlexTouch U-200 insulin) ibuprofen 600 mg tablet 600 mg PO TID PRN pain #270 tabs 06/06/23 trazodone 100 mg tablet 100 mg PO HS #90 tabs 06/06/23 omeprazole 20 mg capsule,delayed 20 mg PO DAILY #90 caps 11/02/23 release buspirone 10 mg tablet 10 mg PO BID #180 tabs 11/23/23 metformin 1,000 mg tablet 1,000 mg PO BID #180 tabs 11/23/23 simvastatin 10 mg tablet 10 mg PO DAILY #90 tabs 11/23/23 cyclobenzaprine 10 mg tablet 10 mg PO TID PRN back pain #90 tabs 12/20/23 semaglutide 14 mg tablet 14 mg PO DAILY #90 tabs 12/22/23 Allergies Allergy/AdvReac Type Severity Reaction Status Date / Time No Known Allergies Allergy Verified 01/27/24 17:18 General Stated Complaint: GenMedical KAMRON: 3 Review of Systems Narrative: see HPI Exam Narrative Exam Narrative: General: Alert, well appearing, well nourished, in no acute distress. Head: Normocephalic, atraumatic Neck: Trachea midline, ?Neck supple. Cardiac: ?RRR, no murmurs appreciated Resp: No respiratory distress. CTAB. Abd: ?Non-distended, Extremities: ?No deformities.? No peripheral edema. Left arm with muscular tenderness to palpation throughout upper arm and forearm. No bony tenderness at shoulder or elbow. Some bony tenderness at wrist. Sensation intact to light touch throughout entire UE and symmetric with right. 2+ symmetric radial pulses. 5/5 strength throughout LUE. Neurologic: GCS 15. ? Moves all extremities freely against gravity Course Vital Signs Vital signs: Vital Signs Temperature 36.6 C 01/27/24 16:59 Pulse 88 01/27/24 16:59 Respiratory Rate 18 01/27/24 16:59 Blood Pressure 119/94 H 01/27/24 16:59 Pulse Oximetry 97 01/27/24 16:59 Temperature 36.6 C 01/27/24 17:07 Pulse 88 01/27/24 17:07 Respiratory Rate 18 01/27/24 17:07 Respiratory Effort Normal 01/27/24 17:16 Blood Pressure 119/94 H 01/27/24 17:07 Pulse Oximetry 97 01/27/24 17:07 Oxygen Delivery Method Room Air 01/27/24 17:07 Lab/Test Results Lab/Test Results: Laboratory Tests Range/Units 01/27/24 17:55 WBC (4.4-10.8) 10^3/uL 6.82 RBC (3.93-5.22) 10^6/uL 4.71 Hgb (11.2-15.7) g/dL 13.4 Hct (36.0-46.0) % 39.6 MCV (80-95) fL 84 MCH (27.0-33.0) pg 28.5 MCHC (32.0-36.0) % 33.8 RDW (11.7-14.6) % 12.9 Plt Count (130-400) 10^3/uL 164 MPV (8.0-11.0) fL 11.1 H Immature Gran % % 0.1 Neutrophils % % 63.8 Lymphocytes % % 26.0 Monocytes % % 7.3 Eosinophils % % 2.2 Basophils % % 0.6 Nucleated RBC % (0.0-0.3) % 0.0 Absolute Neutrophils (1.2-6.7) 10^3/uL 4.35 Absolute Lymphocytes (1.2-3.4) 10^3/uL 1.77 Absolute Monocytes (0.1-0.8) 10^3/uL 0.50 Absolute Eosinophils (0.0-0.7) 10^3/uL 0.15 Absolute Basophils (0.0-0.2) 10^3/uL 0.04 VBG Lactate (0.6-1.4) mmol/L 0.8 Medical Decision Making 49yo F presenting with left arm pain after electric shock yesterday. 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 After the shock released she fell off the counter landing on her left arm. Vital signs reassuring on arrival, on exam she has some muscular tenderness throughout her LUE with some bony tenderness at the wrist. No focal snuffbox tenderness. Neurovascular intact, no indication for CT imaging. Given tylenol and toradol for pain. EKG reassuring. Labs reviewed as below, CBC & CMP reassuring with no significant abnormalities. Troponin negative. Lactate normal. CK mildly elevated at 337, not suggestive of rhabdo. UA with some WBC & RBS, no nitrates or leuk esterace, equivocal for infection and patient denies any urinary symptoms. Will send for culture. Plain films reviewed, no displaced fracture or dislocation on my view, agree with radiology read below. Given ongoing bony tenderness, placed in thumb spica splint and [facility] occult/scaphoid fracture. Discharged home; discharge instructions and return precautions were reviewed with patient who verbalized understanding. All questions were answered and she is in full agreement with the plan. Imaging Data Radiologic Study: Imaging: X-Ray Radiologist's impression: L wrist & hand: IMPRESSION: No acute fracture or dislocation of the left hand or wrist. Lab Data Lab results reviewed: Yes I reviewed the patient's lab results. Labs: 01/27/24 18:07 Urine - Reflex from Ua Urine Culture - Pending Laboratory Tests Range/Units 01/27/24 01/27/24 17:55 18:07 WBC (4.4-10.8) 10^3/uL 6.82 RBC (3.93-5.22) 10^6/uL 4.71 Hgb (11.2-15.7) g/dL 13.4 Hct (36.0-46.0) % 39.6 MCV (80-95) fL 84 MCH (27.0-33.0) pg 28.5 MCHC (32.0-36.0) % 33.8 RDW (11.7-14.6) % 12.9 Plt Count (130-400) 10^3/uL 164 MPV (8.0-11.0) fL 11.1 H Immature Gran % % 0.1 Neutrophils % % 63.8 Lymphocytes % % 26.0 Monocytes % % 7.3 Eosinophils % % 2.2 Basophils % % 0.6 Nucleated RBC % (0.0-0.3) % 0.0 Absolute Neutrophils (1.2-6.7) 10^3/uL 4.35 Absolute Lymphocytes (1.2-3.4) 10^3/uL 1.77 Absolute Monocytes (0.1-0.8) 10^3/uL 0.50 Absolute Eosinophils (0.0-0.7) 10^3/uL 0.15 Absolute Basophils (0.0-0.2) 10^3/uL 0.04 VBG Lactate (0.6-1.4) mmol/L 0.8 Sodium (136-145) mmol/L 140 Potassium (3.5-5.1) mmol/L 4.0 Chloride (98-107) mmol/L 106 Carbon Dioxide (21.0-32.0) mmol/L 24.0 Anion Gap (3-11) mmol/L 10.0 BUN (7-18) mg/dL 10 Creatinine (0.55-1.02) mg/dL 0.9 Est GFR (CKD-EPI 2020) (mL/min/1.73m2) 77.40 Glucose (74-106) mg/dL 98 Calcium (8.5-10.1) mg/dL 9.0 Total Bilirubin (0.2-1.0) mg/dL 0.48 AST (15-37) U/L 32 ALT (14-59) U/L 34 Alkaline Phosphatase (46-116) U/L 68 Creatine Kinase (26-192) U/L 337 H Troponin I (< or =60) ng/L < 50 Total Protein (6.4-8.2) g/dL 7.5 Albumin (3.4-5.0) g/dL 3.9 Urine Color (Yellow) Yellow Urine Clarity (Clear) Clear Urine pH (5-8) 5.5 Ur Specific Sheldon (1.005-1.025) >= 1.030 H Urine Protein (Neg-Trace) mg/dL 30 H Urine Ketones (Negative) mg/dL Negative Urine Blood (Negative) Trace-lysed H Urine Nitrite (Negative) Negative Urine Bilirubin (Negative) Negative Urine Urobilinogen (Up to 0.2) mg/dL 0.2 Ur Leukocyte Esterase (Negative) Small H Urine RBC (0-2) HPF 5-10 H Urine WBC (0-5) HPF 10-20 H Ur Epithelial Cells (Negative) HPF Few Urine Crystals (Negative) HPF Negative Urine Bacteria (Negative) HPF Moderate Urine Casts (Negative) LPF Negative Urine Mucus (Negative) Negative Ur Culture Indicated? Yes Urine Glucose (Negative) mg/dL Negative Quality:SDOH Health Related Social Needs: No Data to Display PFSH All Active Problems (Updated 10/22/22 @ 10:33 by SHERYL Jimenez) Electric shock (Acute) Trigger finger, right middle finger (Acute) s/p A1 lennie release, 10-12-22 Type 2 diabetes mellitus (Chronic) Hyperlipidemia (Chronic) Nonalcoholic steatohepatitis (MARQUEZ) (Chronic) [place] [facility] [place] PCOS (polycystic ovarian syndrome) (Chronic) Generalized anxiety disorder (Chronic) Depressive disorder (Chronic) Gastroesophageal reflux disease (Chronic) Allergic rhinitis (Chronic) 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 Obesity (Chronic) 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: 10/12/2022 Medical History Treva's deformity of right heel Status post excision and debridement: 02/10/2021 Surgical History History of ankle surgery (04/18/09) Left ankle: excision of recurrent exostosis to left malar region 10/12/2013 and 04/18/2009 (arthrotomy and osteophyte excision) History of bilateral carpal tunnel release (11/01/06) History of repair of anterior cruciate ligament of right knee History of surgery on extremity (02/10/21) Right Achilles Insertion Debridement with Treva Resection and Reattachment of Achilles Tendon S/P arthroscopic knee surgery Bilateral S/P colonoscopy (03/09/07) Status post incision and drainage (01/16/14) Of suppurative tenosynovitis (infection) of the flexor tendon of the left index finger Family History Mother Hyperlipidemia Melanoma Depression Father Essential hypertension Hyperlipidemia Stroke Brother Asthma Hyperlipidemia Type 2 diabetes mellitus Daughter No problems noted. Maternal Grandfather Colon cancer Maternal Grandmother , at 94 Breast cancer in her 50s Paternal Grandfather , age 94 Alcohol abuse Paternal Grandmother , 56 from asthma attack Asthma Social History (Updated 09/16/22 @ 15:21 by Nguyen Sterans) Smoking/Tobacco Use Status: Never Smoking risk assessment performed?: Yes Alcohol Intake: current Alcohol Intake frequency: a few times a month Alcohol type: beer Drug use: Never Substance use type: does not use Caregiver/Support person: No Household members: spouse and children Housing: house Communication Needs: None Do you need help understanding health information?: Never 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 Pets and animals: Yes Pets and animals: cat(s) and dog(s) Sexually active: Yes Do you think of yourself as: straight/heterosexual Current gender identity: female What is your relationship status?: How often do you talk on the phone with friends or family?: once per week How often do you get together with friends or relatives?: once per week How often do you attend yazdanism or presybeterian services?: decline to answer Do you belong to any clubs or organized social groups?: no Panel score (0-1 are the most socially isolated patients): 1 What type of physical activity do you participate in: none Shae/Yarsanism: None Special shae needs: No Seatbelt use: always Helmet use: No Drive intox or ride w/intox snaker tractor driver: No Do you feel safe at home: Yes Do you feel safe in your relationship?: Yes History History 3 Para Hx # Term Pregnancies Multiple births Hx # Pregnancies Ectopic pregnancies AB induced Hx Number of Living Children 1 AB spontaneous 2
[2024-01-27 18:19] LABS: Bilirubin Negative (Negative); Blood Trace-lysed (Negative); Clarity Clear (Clear); Glucose Negative (Negative); Ketones Negative (Negative); Leukocyte Esterase Small (Negative); Nitrite Negative (Negative); Specific Gravity >= 1.030 (1.005-1.025); Urobilinogen 0.2 mg/dL (Up to 0.2); pH 5.5 (5-8)
[2024-01-27 18:25] LABS: ALT 34 U/L (14-59); AST 32 U/L (15-37); Albumin 3.9 g/dL (3.4-5.0); Alkaline Phosphatase 68 U/L (46-116); BUN 10 mg/dL (7-18); Bilirubin, Total 0.48 mg/dL (0.2-1.0); CREATININE 0.9 mg/dL (0.55-1.02); Chloride 106 mmol/L (98-107); Creatine Kinase 337 U/L (26-192); Glucose 98 mg/dL (74-106); Sodium 140 mmol/L (136-145); Total Protein 7.5 g/dL (6.4-8.2); Troponin I < 50 ng/L (< or =60)
[2024-01-27 18:28] LABS: Bacteria Moderate HPF (Negative); C & S Indicated? Yes; Casts Negative LPF (Negative); Crystals Negative HPF (Negative); Epithelial Cells Few HPF (Negative); Mucus Negative (Negative)
[2024-01-27] MEDS: Ketorolac 15 MG/ML VIAL IM (19:22)
[2024-01-27] MEDS: Acetaminophen 500 MG TAB 1000 MG PO (19:22)
--- NOTE | 2024-01-28 10:37 | NUR.NOTE ---
Access chart to get diagnosis information for [facility] billing. Nursing Note:
== END 2024-01-27 19:54 | disposition home or self-care (01) ==
PROVIDERS: Emergency Provider Student in an Organized Health Care Education/Training Program; PCP Nurse Practitioner Family
DX: T75.4XXA Electrocution, initial encounter (principal); R20.0 Anesthesia of skin; E11.9 Type 2 diabetes mellitus without complications; E78.5 Hyperlipidemia, unspecified; W86.0XXA Exposure to domestic wiring and appliances, initial encounter; Y93.89 Activity, other specified; Y92.018 Other place in single-family (private) house as the place of occurrence of the external cause; Z79.4 Long term (current) use of insulin; Z79.84 Long term (current) use of oral hypoglycemic drugs
CPT/HCPCS: 80053; 82550; 93005; 96372; 99284; 73110; 73130; 81003; 81015; 83605; 84484; 85025; 87086; 93010; J1885

== ENCOUNTER 2024-03-13 01:11 | Outpatient (CLI) | payer BC, SELFPAY ==
--- NOTE | 2024-03-13 08:30 | DI.MRI_ITS ---
Exam(s) MR UPPER JOINT LT WO EXAM: MR UPPER JOINT LT WO CLINICAL HISTORY: L WRIST INJURY,occult fx scaphoid lt wrist,s62.002a. TECHNIQUE: Multiplanar multisequence MRI was performed. COMPARISON: None. FINDINGS: BONES: There is no fracture or contusion pattern. JOINTS: The radiocarpal joint is unremarkable. The carpal joints are unremarkable. Minimal degene rative changes. Small amount of fluid around carpal bones.. TENDONS: Flexors: Unremarkable. Extensors: Unremarkable. MUSCLES: Unremarkable. MEDIAN NERVE: Unremarkable on this noncontrast examination. SOFT TISSUES: Unremarkable. LIGAMENTS: Unremarkable. TRIANGULAR FIBROCARTILAGE: Unremarkable. IMPRESSION: No evidence of scaphoid fracture. DATA REPOSITORY:
== END 2024-03-13 01:31 ==
LOC: DI 01:11
PROVIDERS: PCP Nurse Practitioner Family; Visit Provider Student in an Organized Health Care Education/Training Program
DX: M25.532 Pain in left wrist (principal)
CPT/HCPCS: 73221

== ENCOUNTER 2024-05-09 02:20 | Outpatient (CLI) | payer BC, SELFPAY ==
[2024-05-09 09:09] LABS: Calculated LDL 97 mg/dL (<100); Cholesterol 174 mg/dL (<200); HDL Cholesterol 42 mg/dL (40-60); TSH (W/Ref FT4) 1.98 uIU/mL (0.36-3.74); Triglyceride 177 mg/dL (<150)
[2024-05-09 18:37] LABS: HIV-1/2 Ag & Ab Screen Negative (Negative)
[2024-05-09 18:41] LABS: Hepatitis C Ab w Rflx HCV PCR Negative (Negative)
[2024-05-09 18:45] LABS: HBs Antibody, Quant 19.5 mIU/mL (See Note); Hep B Surface Ab Positive (See Note); Hepatitis B Core Antibody Negative (Negative); Hepatitis B Surface Antigen Negative (Negative)
== END 2024-05-09 02:21 | disposition home or self-care (01) ==
PROVIDERS: PCP Nurse Practitioner Family; Referring Provider Nurse Practitioner Family; Visit Provider Nurse Practitioner Family
DX: E11.9 Type 2 diabetes mellitus without complications (principal); K75.81 Nonalcoholic steatohepatitis (NASH); Z11.59 Encounter for screening for other viral diseases; Z11.4 Encounter for screening for human immunodeficiency virus [HIV]
CPT/HCPCS: 36415; 80061; 86704; 86706; 86803; 87340; 87389; 83036; 84443

== ENCOUNTER 2024-05-11 13:32 | Outpatient (REF) | payer BC, SELFPAY ==
--- NOTE | 2024-05-11 09:15 | PAPFT_PTH ---
PATIENT: Jun Sutton LOC: [facility] U#:[id number] AGE/SX: 49/F ROOM: RE05/11/[address]: Mady Jones MD, DC : 1975 BED: DIS: 05/11/2024 SPEC #: [id number] RECD: 05/11/24 13:43 STATUS: DANYA REQ #: [id number] LANE: 05/11/24 09:[address]: Mady Jones DEPT: [facility] Cytology RECD BY: No Olivares ENTERED: 05/11/24 13:43 SP TYPE: PAPFT OTHR DR: SHERIF Brown Tissues: 1 - CX/ENDOCX FOR PAP SMEARS Procedures: PAP THIN PREP/UVM Screening HPV DNA PROBE Comments: [id number] (HPV 16 & 18/45)
== END 2024-05-11 13:33 | disposition home or self-care (01) ==
LOC: LBN 13:32
PROVIDERS: PCP Nurse Practitioner Family; Visit Provider Family Medicine
DX: Z11.51 Encounter for screening for human papillomavirus (HPV) (principal); Z01.419 Encounter for gynecological examination (general) (routine) without abnormal findings
CPT/HCPCS: 88142; 87624

== ENCOUNTER 2024-06-18 01:36 | Outpatient (CLI) | payer BC, SELFPAY ==
--- NOTE | 2024-06-18 08:25 | DI.MAMMO_ITS ---
Exam(s) MAMMO SCREENING EXAM: MAMMO SCREENING CLINICAL HISTORY: screening,z12.39 TECHNIQUE: Mammograms were interpreted according to the usual protocol including computer analysis w [employer] CAD system, tomosynthesis and C-view imaging. COMPARISON: 2013 through 2022 FINDINGS: The breasts are composed of mainly fatty density , Breast Density category A. No suspicious masses or suspicious microcalcifications are seen. No skin thickening or abnormal axillary lymph nodes are seen. There has been no significant change from prior exams. IMPRESSION: BI-RADS Category 1, Negative mammogram Yearly screening mammography is recommended. Breast Density - Category A, fatty density. A negative radiographic report should not delay biopsy if a dominant or clinically suspicious mass is present. Up to ten percent of cancers are not identified on mammography. A negative report may reinforce clinical impression. Adenosis and dense breasts may obscure an underlying neoplasm. False positive reports average 6 to 10%. Patient will receive a letter notifying them of these results.
== END 2024-06-18 01:56 ==
LOC: DI 01:36
PROVIDERS: PCP Nurse Practitioner Family; Visit Provider Nurse Practitioner Family
DX: Z12.31 Encounter for screening mammogram for malignant neoplasm of breast (principal); R92.313 Mammographic fatty tissue density, bilateral breasts
CPT/HCPCS: 77063; 77067

== ENCOUNTER 2024-10-17 23:08 | Outpatient (REF) | payer BC, SELFPAY | END 2024-10-17 23:09 | disposition home or self-care (01) | LOC: LBN 23:08 | PROVIDERS: PCP Nurse Practitioner Family; Visit Provider Registered Nurse | DX: N39.0 Urinary tract infection, site not specified (principal); R82.89 Other abnormal findings on cytological and histological examination of urine | CPT/HCPCS: 87086 ==

== ENCOUNTER 2025-02-01 10:59 | Outpatient (CLI) | payer BC, SELFPAY ==
[2025-02-01 12:21] LABS: HCT 40.6 % (36.0-46.0); HGB 13.7 g/dL (11.2-15.7); MCH 28.2 pg (27.0-33.0); MCHC 33.7 % (32.0-36.0); MCV 84 fL (80-95); MPV 11.6 fL (8.0-11.0); Platelet Count 196 10^3/uL (130-400); RBC 4.86 10^6/uL (3.93-5.22); RDW 12.5 % (11.7-14.6); RDW-SD 37.6 fL; WBC 5.31 10^3/uL (4.4-10.8)
[2025-02-01 12:56] LABS: ALT 42 U/L (14-59); AST 34 U/L (15-37); Albumin 4.2 g/dL (3.4-5.0); Alkaline Phosphatase 68 U/L (46-116); Anion Gap 9.9 mmol/L (3-11); BUN 12 mg/dL (7-18); Bilirubin, Total 0.6 mg/dL (0.2-1.0); CO2 28.1 mmol/L (21.0-32.0); Calcium 9.8 mg/dL (8.5-10.1); Chloride 103 mmol/L (98-107); Estimated GFR 76.92 (mL/min/1.73m2); Glucose 130 mg/dL (74-106); Potassium 4.1 mmol/L (3.5-5.1); Sodium 141 mmol/L (136-145); Total Protein 8.1 g/dL (6.4-8.2); Vitamin D 25 Total 79 ng/mL (30-100)
== END 2025-02-01 11:00 | disposition home or self-care (01) ==
PROVIDERS: PCP Nurse Practitioner Family; Visit Provider Nurse Practitioner Family
DX: E11.9 Type 2 diabetes mellitus without complications (principal); K75.81 Nonalcoholic steatohepatitis (NASH); R53.83 Other fatigue
CPT/HCPCS: 36415; 80053; 82306; 85027